=== PATIENT | female | born 1950 | race Caucasian/White ===

== ENCOUNTER 2019-12-10 07:42 | Day surgery (SDC) | payer BC, MEDICAID ==
[~2019-12-10] VITALS: Ht 167.6 cm; Wt 56.7 kg
[2019-12-10] VITALS (9 sets, daily range): BP systolic 115–156; BP diastolic 59–83
[2019-12-10] MEDS ORDERED: ASPI-611 PO (08:36)
[2019-12-10] MEDS ORDERED: DOCU-148 PO (08:37)
[2019-12-10] MEDS ORDERED: FLUO-167 PO (08:38)
[2019-12-10] MEDS ORDERED: FURO40TA4 PO (08:39)
[2019-12-10] MEDS ORDERED: MIDO10TA PO (08:40)
[2019-12-10] MEDS ORDERED: OMEP40CA13 PO (08:41)
[2019-12-10] MEDS ORDERED: SENN-162 PO (08:41)
[2019-12-10] MEDS ORDERED: LOVA20TA2 PO (08:42)
[2019-12-10] MEDS ORDERED: SPIR50TA5 PO (08:42)
[2019-12-10] MEDS ORDERED: TEMA7.5C PO (08:43)
[2019-12-10] MEDS: albumin 25% 100mL bottle x 1 IV PRN ×2 (09:27→10:17)
== END 2019-12-10 11:09 | disposition home or self-care (01) ==
LOC: SSTAY O 07:42
PROVIDERS: ATTEND Radiology Diagnostic Radiology
DX: R18.8 Other ascites (principal); I10 Essential (primary) hypertension
CPT/HCPCS: 49083; P9047

== ENCOUNTER 2020-05-29 14:02 | Inpatient (IN) | payer BC, MEDICAID ==
[~2020-05-29] VITALS: Ht 162.6 cm; Wt 107.9 kg
[~2020-05-29 14:02] MED LIST: ASPI-611 PO; DOCU-148 PO; FLUO-167 PO; FURO40TA4 PO; LOVA20TA2 PO; MIDO10TA PO; OMEP40CA13 PO; SENN-263 PO; SPIR50TA5 PO; TEMA7.5C PO
[2020-05-30] MEDS ORDERED: mag hydrox/Alum hydrox/simeth 30ml oral suspension PO PRN (09:25)
[2020-05-30] MEDS ORDERED: magnesium hydroxide 30ml (MOM) UD suspension PO PRN (09:25)
[2020-05-30] MEDS ORDERED: traZODone 50mg tablet PO PRN (09:25)
[2020-05-30] MEDS ORDERED: loperamide 2mg capsule PO PRN (09:25)
[2020-05-30] MEDS ORDERED: acetaminophen 325mg tablet PO PRN (09:25)
[2020-05-30] MEDS ORDERED: QUET25TA PO (09:57)
[2020-05-30] MEDS ORDERED: RIFA550T PO (09:57)
[2020-05-30] MEDS ORDERED: PANT-47 PO (09:57)
[2020-05-30] MEDS ORDERED: ARIP5TAB14 PO (09:57)
[2020-05-30] MEDS ORDERED: CEPH-572 PO (09:57)
[2020-05-30] MEDS ORDERED: DULO-31 PO (09:59)
[2020-05-30] MEDS ORDERED: LACT10SO PO (10:01)
[2020-05-30] MEDS ORDERED: LURA40TA3 PO (10:08)
[2020-05-30] MEDS ORDERED: duloxetine 30mg CAPSULE.DR PO SCH (10:32)
--- NOTE | 2020-05-30 10:51 | NUR ---
Admission note: Pt admitted to [place] for Behavioral health on 5150 at 0915 for DTS. Pt attempted suicide by overdosing on 60 Tramadol tablets. Pt has history of chronic pain, fibromyalgia, depression, PE, liver failure. Pt presents confused upon arrival. Pt unsteady on her feet. Using wheelchair to transport pt and bedside commode.
[2020-05-30 13:12] VITALS: BP 111/69
[2020-05-30] MEDS: pantoprazole 40mg Tablet.DR PO SCH (13:30)
[2020-05-30] MEDS: rifaximin 550mg tablet PO SCH ×2 (13:30→20:27)
[2020-05-30] MEDS: lactulose 20gm/30ml cup PO SCH ×2 (13:30→20:27)
[2020-05-30] MEDS: cephalexin 500mg capsule PO SCH ×2 (13:33→20:27)
[2020-05-30] MEDS: nystatin 15 GM powder TP SCH ×3 (13:33→20:37)
[2020-05-30] MEDS: aripiprazole 5mg tablet PO SCH (13:33)
--- NOTE | 2020-05-30 15:45 | NUR ---
Nursing Progress Note: Legal hold: Client on involuntary status for DTS Report received from Odell Mendiola RN with use of SBAR Why are they here: Pt admitted to [place] for [facility] health on 5150 at 0915 for DTS. Pt attempted suicide by overdosing on 60 Tramadol tablets. Pt has history of chronic pain, fibromyalgia, depression, PE, liver failure. Pt presents confused upon arrival. Pt unsteady on her feet. Using wheelchair to transport pt and bedside commode. Assessment What has happened this shift: After admission, pt spent most of the day in her bed. Pt did get up with assistance to lunch. Pt c/o generalized body aches from lying in bed and she does have h/o fibromyalgia dx..Pt confused and disorganized. Pt answers with unrelated topic at times to questions and was not oriented to place or time. She stated she was at [facility] and that it is 2006. Pt is very unsteady on her feet and though educated repeatedly, she kept trying to get up without asking for help. Staff would respond when her bed alarm would go off. Pt has flat to depressed affect and dramatic at times. Pt continues to endorse suicidal thoughts with a plan to overdose on pills. S/I, H/I: yes, S.I. with plan to overdose on pills A/VH: denies Sleep: napped on and off throughout the day. Pt states difficulty sleeping at noc ADL's: with assistance, wears pull-up Group attendance: n/a Were meds taken: yes Any med S/E: no Mental Status Exam Appearance:hospital scrubs Eye contact: poor Behavior: sedated, dramatic, cooperative Speech: clear Mood: anxious/depressed Affect: depressed, dramatic Thought process: disorganized at times Thought Content: confused Cognition: impaired Insight: poor Judgment: poor - pt gets up without asking for help Interventions PRN's used: Therapeutic interventions:1:1 assessment, maintained a safe and therapeutic environment, provided clear and simple instructions, monitored behavior and need for intervention, provided redirection/reassurance as needed, encouragement to perform personal hygiene, limit setting, positive reinforcement, Q 15 minute safety checks. Restraints/seclusion/emergency medication: none Justification of Continued Inpatient Treatment:
[2020-05-30] MEDS ORDERED: duloxetine 30mg CAPSULE.DR PO ONE (16:05)
[2020-05-30] MEDS ORDERED: QUEtiapine 25mg tablet PO PRN (16:30)
[2020-05-30] MEDS: LORazepam 1 MG tablet PO PRN (16:42)
[2020-05-30 20:32] VITALS: BP 123/74
[2020-05-30] MEDS ORDERED: QUEtiapine 25mg tablet PO SCH (21:00)
[2020-05-30] MEDS: acetaminophen 325mg tablet PO PRN (22:12)
[2020-05-31] MEDS: LORazepam 1 MG tablet PO PRN (00:16)
[2020-05-31] MEDS ORDERED: traMADol 50MG tablet PO ONE ×2 (00:30→22:40)
[2020-05-31] MEDS ORDERED: LORazepam 1 MG tablet PO ONE (02:45)
[2020-05-31] MEDS ORDERED: QUEtiapine 25mg tablet PO ONE (02:45)
[2020-05-31 02:58] VITALS: BP 140/72
--- NOTE | 2020-05-31 04:24 | NUR ---
Nursing Progress Note: Legal hold:5150 Client on involuntary status for DTS Report received from Odell Mendiola RN with use of SBAR Why are they here: Pt admitted to [place] for Behavioral health on 5150 at 0915 for DTS. Pt attempted suicide by overdosing on 60 Tramadol tablets. Pt has history of chronic pain, fibromyalgia, depression, PE, liver failure. Pt presents confused upon arrival. Pt unsteady on her feet. Using wheelchair to transport pt and bedside commode. Assessment What has happened this shift: Pt is confused, thinks she is in a house, and makes random statements about ducks, and people's names. She is unable to ambulate independently and must have a staff member at her bedside at all times, because she constantly tries to pull herself out of bed with her eyes closed to "get up", but once she is up does not know what to do. Pt reports pain in her left upper leg/ hip area and cries out multiple times. She occasionally contracts and shakes and states she is anxious. Pt given ativan 1mg and PRN Seroquel 25 mg. Pt continues to toss and turn and cry out. She states repeatedly "I want to kill myself I am in so much pain." Hospitalist called, tramadol 50mg PO ordered and given. Pt continues to toss and turn and try to get out of bed. Dr. Vázquez called, ordered Ativan 2mg, Seroquel 50 mg PO which was given after assessing her blood pressure (140/72). Pt still continues to toss and turn back and forth in bed and try to climb out. Staff reassures her and tries to educate her on fall risks, but she just mumbles and continues to try to climb out of the bed with her eyes closed. S/I, H/I: endorses SI A/VH: denies Sleep: hardly any ADL's: total assistance, wears pull-up Group attendance: n/a Were meds taken: yes Any med S/E: no Mental Status Exam Appearance: night gown Eye contact: poor, mostly keeps her eyes shut Behavior: yells outloud, tries to get out of bed constantly Speech: sometimes clear, sometimes mumbles Mood: anxious/depressed Affect: depressed Thought process: disorganized at times Thought Content: confused Cognition: impaired Insight: poor Judgment: poor - pt gets up without asking for help Interventions PRN's used:ativan 1mg, seroquel 25mg, tramadol 50mg, ativan 2mg, seroquel 50mg Therapeutic interventions:1:1 assessment, maintained a safe and therapeutic environment, provided clear and simple instructions, monitored behavior and need for intervention, provided redirection/reassurance as needed, encouragement to perform personal hygiene, limit setting, positive reinforcement, Q 15 minute safety checks. Restraints/seclusion/emergency medication: none Justification of Continued Inpatient Treatment: PT states she is suicidal because of how much pain she is in.
[2020-05-31 08:00] VITALS: BP 97/70
[2020-05-31] MEDS: duloxetine 30mg CAPSULE.DR PO SCH (08:00)
[2020-05-31] MEDS: aripiprazole 5mg tablet PO SCH (08:00)
[2020-05-31] MEDS: cephalexin 500mg capsule PO SCH ×2 (08:00→20:15)
[2020-05-31] MEDS: pantoprazole 40mg Tablet.DR PO SCH (08:00)
[2020-05-31] MEDS: rifaximin 550mg tablet PO SCH ×2 (08:00→20:17)
[2020-05-31] MEDS: lactulose 20gm/30ml cup PO SCH ×3 (08:00→20:15)
[2020-05-31] MEDS: nystatin 15 GM powder TP SCH ×3 (08:11→20:17)
[2020-05-31 09:31] LABS: HEMOGLOBIN A1C 4.7 % (4.5-6.2)
[2020-05-31 09:36] LABS: CHOLESTEROL 129 MG/DL (0-200); HDL CHOLESTEROL 32 MG/DL (35-60); LDL CHOLESTEROL 84 MG/DL (50-100); TRIGLYCERIDES 63 MG/DL (20-135)
[2020-05-31 13:45] VITALS: BP 123/82
[2020-05-31 17:52] LABS: BASOPHILS % (AUTO) 0.5 % (0-1); EOSINOPHILS # (AUTO) 0.3 X10'3 (0-0.9); EOSINOPHILS % (AUTO) 5.4 % (0-6); HEMATOCRIT 33.9 % (35.0-45.0); HEMOGLOBIN 11.5 g/dl (12.0-16.0); LYMPHOCYTES # (AUTO) 0.7 X10'3 (1.1-4.8); MEAN CORPUSCULAR HEMOGLOBIN 31.1 PG (27.0-31.0); MEAN CORPUSCULAR VOLUME 91.6 FL (78-98); MEAN PLATELET VOLUME 7.8 FL (7.4-10.4); MONOCYTES # (AUTO) 0.7 X10'3 (0-0.9); MONOCYTES % (AUTO) 12.8 % (2-12); NEUTROPHILS # (AUTO) 3.8 X10'3 (1.8-7.7); NEUTROPHILS % (AUTO) 68.3 % (42-75); PLATELET COUNT 156 X10'3 (140-440); RED CELL DISTRIBUTION WIDTH 14.5 % (11.5-14.5); WHITE BLOOD COUNT 5.5 X10'3 (4.5-11.0)
[2020-05-31 18:00] LABS: PARTIAL THROMBOPLASTIN TIME 29 SECONDS (22-32)
--- NOTE | 2020-05-31 18:06 | NUR ---
Nursing Progress Note: Legal hold:5150 Client on involuntary status for DTS Report received from Gerda SHARIF with use of SBAR Why are they here: Pt admitted to [place] for [facility] health on 5150 at 0915 for DTS. Pt attempted suicide by overdosing on 60 Tramadol tablets. Pt has history of chronic pain, fibromyalgia, depression, PE, liver failure. Pt presents confused upon arrival. Pt unsteady on her feet. Using wheelchair to transport pt and bedside commode. Assessment What has happened this shift: Pt remained somnolent for most of the shift. She only opened her eyes a couple of times. She was unable to take her meds due to decreased LOC. Pt refused breakfast and lunch and did not drink fluids all day. Pt was turned and repositioned by school patrol and RN. Pt did verbalize twice that she needed to pee and without opening her eyes was placed on the commode with the assist of 2 and voided small amount of urine, she was incontinent of urine in her pull-up brief X 1. Dr Vázquez and Dr Hong notified of pt's change of condition as well as her inability to take her PO medications today. Pt has significant ascites. VSS this am were: 97.9, 102, 16, 94% RA, 97/70. Rechecked VS around lunchtime: 97.8, 103, 94% RA, 123/82. Pt has cool extremities. Dr Hong ordered lab work: Ammonia level, CBC/diff, CMP, PT/INR, PTT, thyroid panel, UA/C&S if indicated. Ammonia level back at 68, endorsed UA to noc shift. Pt did appear a little more alert before dinner, opened her eyes and appeared to be focusing on staff. Pt is on a LOS. S/I, H/I: Unable to assess A/VH: Unable to assess Sleep: hardly any ADL's: Extensive assist of 2 for transfers, toileting/commode,and repositioning. Group attendance: No Were meds taken: No Any med S/E: may have been sedated from medications received during the night. Mental Status Exam Appearance: Pale elderly woman somnolent and snoring in bed. Eye contact: Kept eyes shut for majority of shift. Behavior: Decreased LOC Speech: Mumbled,minimal Mood: Unable to assess Affect: Unable to assess Thought process: Decreased LOC Thought Content: Unable to assess Cognition: Unable to assess due to ALOC Insight: Unable to assess Judgment: Unable to assess Interventions PRN's used: None Therapeutic interventions:1:1 assessment physical assessment, assist with turning, repositioning, toileting, and incontinent care. Notified MD and psychiatrist of pt's change of condition, ALOC. Restraints/seclusion/emergency medication: None Justification of Continued Inpatient Treatment: PT has end stage liver disease, she has an ALOC, she is s/p OD in a suicide attempt. Pt needs stabilization and possibly placement.
[2020-05-31 18:10] LABS: ALANINE AMINOTRANSFERASE 16 U/L (12-78); ALBUMIN 1.7 G/DL (3.4-5.0); ALBUMIN/GLOBULIN RATIO 0.4 (1.1-1.5); ALKALINE PHOSPHATASE 126 IU/L (46-116); ANION GAP 4 (8-16); ASPARTATE AMINO TRANSFERASE 48 U/L (10-37); BILIRUBIN,TOTAL 1.5 MG/DL (0.1-1.0); BLOOD UREA NITROGEN 19 MG/DL (7-18); CALCIUM 8.6 MG/DL (8.5-10.1); CHLORIDE 103 MMOL/L (99-107); CREATININE 0.95 MG/DL (0.40-0.90); GLUCOSE 112 MG/DL (70-104); SODIUM 137 MMOL/L (135-145); TOTAL CARBON DIOXIDE 30.3 MMOL/L (24-32); TOTAL PROTEIN 6.4 G/DL (6.4-8.2); eGFR 58 ML/MIN
[2020-05-31 20:37] VITALS: BP 125/80
[2020-05-31] MEDS ORDERED: LIDOcaine 5% patch TP ONE (22:40)
[2020-06-01 00:38] LABS: CLARITY,URINE CLEAR (Clear); COLOR,URINE YELLOW (Yellow); GLUCOSE, URINE NEGATIVE (Neg); KETONES,URINE TRACE mg/dl (Neg); LEUKOCYTE ESTERASE ,URINE NEGATIVE (Neg); NITRITES, URINE NEGATIVE (Neg); OCCULT BLOOD,URINE LARGE (Neg); PH,URINE 5.5 (4.8-8.0); PROTEIN,URINE NEGATIVE (Neg); UROBILINOGEN,URINE 0.2 E.U/dL (0.2-1.0)
[2020-06-01 00:39] LABS: UA COLLECTION TYPE STRAIGHT CATH
[2020-06-01 00:43] LABS: BACTERIA,URINE 1+ /HPF (Neg); SQUAMOUS EPITHELIAL CELL,UR MODERATE /LPF (FEW); WBC,URINE 0-4 /HPF (0-4)
--- NOTE | 2020-06-01 02:22 | NUR ---
Nursing Progress Note: Legal hold:5150 Client on involuntary status for DTS Report received from Abhijit Mendiola RN with use of SBAR Why are they here: Pt admitted to [place] for Behavioral health on 5150 at 0915 for DTS. Pt attempted suicide by overdosing on 60 Tramadol tablets. Pt has history of chronic pain, fibromyalgia, depression, PE, liver failure. Pt presents confused upon arrival. Pt unsteady on her feet. Using wheelchair to transport pt and bedside commode. Assessment What has happened this shift: Pt continues to be on a LOS for fall risk. She responds to her name being called, but generally keeps her eyes closed. PT remembers staff members from the night before. She still endorses SI related to unresolved and unbearable pain. Pt is a 3 person assist to bedside commode, she states she needs to urinate, but once she sits on the commode she can not. While she is standing up, property underwriter asses sacral area, and no redness or areas of concern observed. Pt is prompted to turn during the shift, which she complies. Pt is in and out of sleep for the first part of the evening, then wakes up crying out in pain from her left hip. consulted, tramadol 50mg po given along with lidocaine patch to left hip. UA was ordered on , pt encouraged to drink water, which she complied with very well. After two failed attempts to urinate on the bedside commode, a straight cath order was obtained. Pt was straight cathed, UA sent to lab. Bladder scan done on pt to see if any retention was occurring, but the bladder scanner kept detecting her ascites. Urine from straight cath was light paula, 100 ML total. Basia care done, area is red and irritated. Barrier cream applied. S/I, H/I: endorses SI A/VH: denies Sleep:see sleep assessment ADL's: total assistance Group attendance: n/a Were meds taken: yes Any med S/E: no Mental Status Exam Appearance: new pajama top given to pt Eye contact: poor, mostly keeps her eyes shut Behavior: sleeps on and off Speech: sometimes clear, sometimes mumbles Mood: anxious/depressed Affect: depressed, tired Thought process: disorganized at times Thought Content: confused Cognition: impaired Insight: poor Judgment: poor Interventions PRN's used:tramadol 50mg lidocaine patch Therapeutic interventions:1:1 assessment, maintained a safe and therapeutic environment, provided clear and simple instructions, monitored behavior and need for intervention, provided redirection/reassurance as needed, encouragement to perform personal hygiene, limit setting, positive reinforcement, Q 15 minute safety checks. Restraints/seclusion/emergency medication: none Justification of Continued Inpatient Treatment: PT states she is suicidal because of how much pain she is in.
[2020-06-01 07:52] VITALS: BP 96/60
[2020-06-01] MEDS: pantoprazole 40mg Tablet.DR PO SCH (08:18)
[2020-06-01] MEDS: aripiprazole 5mg tablet PO SCH (08:18)
[2020-06-01] MEDS: cephalexin 500mg capsule PO SCH ×2 (08:18→21:08)
[2020-06-01] MEDS: lactulose 20gm/30ml cup PO SCH ×3 (08:19→21:10)
[2020-06-01] MEDS: nystatin 15 GM powder TP SCH ×3 (08:19→21:35)
[2020-06-01] MEDS: rifaximin 550mg tablet PO SCH ×2 (08:19→21:09)
[2020-06-01] MEDS: duloxetine 30mg CAPSULE.DR PO SCH (08:19)
[2020-06-01] MEDS: acetaminophen 325mg tablet PO PRN ×2 (08:27→15:42)
[2020-06-01] MEDS: LORazepam 1 MG tablet PO PRN ×3 (08:36→21:08)
[2020-06-01] MEDS ORDERED: traMADol 50MG tablet PO ONE (16:20)
--- NOTE | 2020-06-01 17:21 | NUR ---
Nursing Progress Note: Legal hold:5150 Client on involuntary status for DTS Report received from Gianna Wagner RN with use of SBAR Why are they here: Pt admitted to [place] for Behavioral health on 5150 at 0915 for DTS. Pt attempted suicide by overdosing on 60 Tramadol tablets. Pt has history of chronic pain, fibromyalgia, depression, PE, liver failure. Pt presents confused upon arrival. Pt unsteady on her feet. Using wheelchair to transport pt and bedside commode. Assessment What has happened this shift: Pt was alert though confused today. When asked the date, pt stated that she didn't know. Asked her if she knew what year it was, she did reply, "." She answered correctly "May" for the month, she did not know the day. Asked pt if she knew where she was, she stated "hospital." When asked which hospital, pt was unable to answer. Asked pt what city we are in and she replied, "[place]." Asked pt about her living situation, she stated, "I live alone with my mom and dad." Pt took all of her morning meds without difficulty and ate 50 % of her breakfast, drank her juice and 2 cups of water. Pt tends to speak in short, broken sentences. Pt stated, "this banana,good food." Asked pt is she was feeling depressed, she replied, "better." Asked pt if she was having any SI, she replied, "not now." Pt c/o moderate general and left hip pain. Gave Tylenol 650 mg at 0827. Pt asked if she could have the other pill, "anxiety pill...to help with the pain." Pt was given Ativan 1 mg @ 0836 with good effect. Encouraged pt to get up out of bed and into a wheelchair for lunch. Pt did so with some encouragement, she ate lunch in the w/c in the dining room. Pt appeared uncomfortable in the wheelchair due to her large ascitic abdomen. Pt ate 25% of her lunch and was returned to bed. Pt is able to roll from side to side in bed with direction by grabbing onto the side rails. Pt was up to the commode several times and able to void, pt also had a medium BM. Pt was incontinent of urine X 2 in the bed. Pt wears a pull up brief. Pt drank at least 2 pitchers of water and 2 juices. Pt requested prn Ativan again later in the afternoon. Sitter reported that pt appeared uncomfortable and was restless trying to find a comfortable position in the bed. Pt asked where her recliner was. Medicated pt again with prn Ativan 1 mg at 1523 and prn Tylenol 650 mg at 1542. Charge nurse notified CHELI Villalobos of pt's severe general pain via phone/text message and requested he address pain management. Order obtained for Tramadol 100 mg X 1 given at 1644. S/I, H/I: Pt denies A/VH: Pt denies Sleep: Pt slept 9.5 hours last night per noc shift report, napped frequently throughout the day. ADL's: Extensive assist of 2 for transfers, toileting/commode,and repositioning min to mod assist with meals. Group attendance: No Were meds taken: Yes Any med S/E: None noted or reported. Mental Status Exam Appearance: Pale disheveled white haired elderly with grossly obese/ascitic abdomen and multiple bruises on upper extremities, frequently appears moderately distressed. Eye contact: Fair Behavior: Pleasant, cooperative, restless. Speech: Clear, audible, speaks mostly in one word answers or short broken sentences. Mood: "better" Affect: Blunted, distressed at times. Thought process: Linear Thought Content: Wants her glasses and her recliner, focused on pain and requests for anxiety medication. Cognition: A/O X 1, intermittent delirium Insight: Poor Judgment: Fair Interventions PRN's used: Ativan 1 mg at 0836 & 1542, Tylenol 650 mg at 0827 & 1523. Therapeutic interventions: 1:1 assessment, establishment of rapport, active listening, therapeutic conversation, provided simple, clear 1 to 2 step directions, encouraged pt to reposition in bed, encouraged nutrition and hydration, extensive assist with ADLs, 2 person assist with transfers, toileting, pain management, line of sight observation. Restraints/seclusion/emergency medication: None Justification of Continued Inpatient Treatment: Pt has end stage liver disease (MORFIN) with significant ascites, she is confused, she is in moderate to severe pain, she needs extensive assist of 2 for most ADLs she is s/p OD in a suicide attempt. Pt needs medical and mental health stabilization, she needs pain management and may need placement in a higher level of care due to medical issues.
[2020-06-01 19:00] VITALS: BP 95/60
[2020-06-01] MEDS ORDERED: lactose-reduced food (Ensure High Protein) 237ml bottle PO ONE (19:40)
[2020-06-02] MEDS: traMADol 50MG tablet PO PRN ×3 (00:19→14:50)
--- NOTE | 2020-06-02 03:20 | NUR ---
Nursing Progress Note: Legal hold:5150 Client on involuntary status for DTS Report received from Gabriela Mendiola RN with use of SBAR Why are they here: Pt admitted to [place] for Behavioral health on 5150 at 0915 for DTS. Pt attempted suicide by overdosing on 60 Tramadol tablets. Pt has history of chronic pain, fibromyalgia, depression, PE, liver failure. Pt presents confused upon arrival. Pt unsteady on her feet. Using wheelchair to transport pt and bedside commode. Assessment What has happened this shift: Pt continues to be on a LOS for fall risk. Pt is in extreme discomfort due to her distended abdomen. She states she usually gets a paracentesis approx every 2 weeks, and it has been longer than that. A padded reclining chair was brought up for her to try to ease her discomfort and allow her to sit up instead of lay in bed constantly. Pt sat in chair for 2 minutes then demanded to get back into bed. She tosses and turns all night long with no relief. Pt is given ativan 1mg PRN and tramadol 50 mg PRN. Pt feels urgency and gets up often to try to pee. Pt is a 2 person assist, she remains weak and can put forth only a little effort with ADLS. Pt is incontinent of urine x1, bedding changed. Pt uses the bedside commode as well. Pt needs assistance in drinking and eating. She keeps her eyes closed most of the time and only replies in short answers, she appears exhausted. When asked if she is still feeling suicidal she replies, "sometimes" but will not go into any further details. Pt is clear when asking for what she needs, but can be heard talking about "birdies" and names unknown to bid writer. Basia care done, nystatin powder applied, Barrier cream applied. S/I, H/I: endorses passive SI A/VH: denies Sleep:see sleep assessment ADL's: 2 person assist Group attendance: n/a Were meds taken: yes Any med S/E: no Mental Status Exam Appearance: in pajamas Eye contact: poor, mostly keeps her eyes shut Behavior: restless in bed Speech: sometimes clear, sometimes mumbles Mood: exhausted, depressed Affect: depressed Thought process: disorganized at times Thought Content: confused Cognition: impaired Insight: poor Judgment: poor Interventions PRN's used:tramadol 50mg, ativan 1mg , ativan 1 mg Therapeutic interventions:1:1 assessment, maintained a safe and therapeutic environment, provided clear and simple instructions, monitored behavior and need for intervention, provided redirection/reassurance as needed, encouragement to perform personal hygiene, limit setting, positive reinforcement, Q 15 minute safety checks. Restraints/seclusion/emergency medication: none Justification of Continued Inpatient Treatment: PT states she is suicidal because of how much pain she is in.
--- NOTE | 2020-06-02 05:37 | NUR ---
PT got up w/ 2 person assistance 15 times this shift to try to use the bathroom. Out of the 15 times pt was only able to actually go to the bathroom 4 times. Pt had 2 episodes of urinary incontinence requiring bedsheet changes.
[2020-06-02 08:00] VITALS: BP 125/84
[2020-06-02 08:21] LABS: BASOPHILS # (AUTO) 0.1 X10'3 (0-0.2); BASOPHILS % (AUTO) 1.1 % (0-1); EOSINOPHILS # (AUTO) 0.3 X10'3 (0-0.9); EOSINOPHILS % (AUTO) 5.2 % (0-6); HEMATOCRIT 34.5 % (35.0-45.0); HEMOGLOBIN 11.7 g/dl (12.0-16.0); LYMPHOCYTES # (AUTO) 1.2 X10'3 (1.1-4.8); LYMPHOCYTES % (AUTO) 18.1 % (21-51); MEAN CORPUSCULAR HEMOGLOBIN 31.4 PG (27.0-31.0); MEAN CORPUSCULAR VOLUME 92.3 FL (78-98); MEAN PLATELET VOLUME 7.4 FL (7.4-10.4); MONOCYTES # (AUTO) 0.9 X10'3 (0-0.9); MONOCYTES % (AUTO) 13.8 % (2-12); NEUTROPHILS # (AUTO) 4.2 X10'3 (1.8-7.7); NEUTROPHILS % (AUTO) 61.8 % (42-75); PLATELET COUNT 182 X10'3 (140-440); RED BLOOD COUNT 3.73 X10'6 (4.20-5.60); RED CELL DISTRIBUTION WIDTH 14.8 % (11.5-14.5); WHITE BLOOD COUNT 6.7 X10'3 (4.5-11.0)
[2020-06-02] MEDS: pantoprazole 40mg Tablet.DR PO SCH (08:28)
[2020-06-02] MEDS: cephalexin 500mg capsule PO SCH ×2 (08:28→20:33)
[2020-06-02] MEDS: duloxetine 30mg CAPSULE.DR PO SCH (08:28)
[2020-06-02] MEDS: rifaximin 550mg tablet PO SCH ×2 (08:28→20:33)
[2020-06-02] MEDS: aripiprazole 5mg tablet PO SCH (08:28)
[2020-06-02] MEDS: nystatin 15 GM powder TP SCH ×3 (08:29→20:51)
[2020-06-02] MEDS: lactulose 20gm/30ml cup PO SCH ×3 (08:29→20:31)
--- NOTE | 2020-06-02 08:31 | NUR ---
Late Note for contact made on 06/01: CM SS attempted to engage pt in assessment & TP activities however, pt was asleep and unable to rouse. Floridalmater reports that pt sleeps most of the day. As a result, pt was not able to sign DM or TP #9, at this time SS will engage w/identified next of kin-pt's dtr. Elma Doaln LCSW Addendum: 06/02/20 at 0835 by Elma Dolan SS Amended: Links added.
[2020-06-02 08:34] LABS: ALBUMIN 1.8 G/DL (3.4-5.0); ANION GAP 3 (8-16); BILIRUBIN,TOTAL 1.7 MG/DL (0.1-1.0); BLOOD UREA NITROGEN 16 MG/DL (7-18); BUN/CREATININE RATIO 14.8 (6.6-38.0); CALCIUM 8.3 MG/DL (8.5-10.1); CHLORIDE 100 MMOL/L (99-107); CREATININE 1.08 MG/DL (0.40-0.90); GLUCOSE 89 MG/DL (70-104); POTASSIUM 3.6 MMOL/L (3.5-5.1); SODIUM 134 MMOL/L (135-145); TOTAL CARBON DIOXIDE 30.9 MMOL/L (24-32); TOTAL PROTEIN 6.5 G/DL (6.4-8.2); eGFR 50 ML/MIN
[2020-06-02 08:35] LABS: ALANINE AMINOTRANSFERASE 16 U/L (12-78); ALBUMIN/GLOBULIN RATIO 0.4 (1.1-1.5); ALKALINE PHOSPHATASE 111 IU/L (46-116); ASPARTATE AMINO TRANSFERASE 41 U/L (10-37)
--- NOTE | 2020-06-02 08:35 | NUR ---
Late Note: CM On 06/01, SS had t/c with [facility], provided referral on pt's behalf, per t/c with Brayden Alfonso-[facility] ANDRESSA, [facility] is aware of pt and have had referrals for her in the past but nothing current, Brayden took SS referral and suggests that SS get in touch w/[facility] as pt has been granted 51 hrs of IHSS services/mo. JANIE FitzpatrickW Addendum: 06/02/20 at 0839 by Elma Dolan Amended: Links added.
--- NOTE | 2020-06-02 08:39 | NUR ---
CM:Linkages Presenting Issues: Pt's an elderly woman with poor memory, requiring assistance to transfer, has unsteady gait, attempted to end her life by od on her pain meds, pt lives alone. Safety in the home is a barrier to d/c at this time. Interventions: SS had t/c with [facility], left requesting rt t/c as pt requires additional IHSS hours and night time care provider to continue to live in her home. Plan: will engage pt's dtr in dcp activities to mitigate safety risks prior to d/c. Elma Dolan LCSW Addendum: 06/02/20 at 0852 by Elma Dolan Amended: Links added.
[2020-06-02] MEDS: lactose-reduced food (Ensure High Protein) 237ml bottle PO SCH ×3 (08:44→18:02)
--- NOTE | 2020-06-02 09:26 | NUR ---
Assessment Presenting Issues: Pt's 5150 expires this AM, pt needs 5250/Vol determination. Interventions: SS met w/pt @ bedside, pt was in bed, naked w/eyes closed but became alert when her name was called. SS re-introduced self, pt kept asking for "Chrissy/Angel", SS conducted a brief MSE: A/O- x1 pt only oriented to self, not able to tell me where she's at, time of day, or why she's here Mood-anxious Affect-sleepy As pt lacks capacity to determine basic information re Who, what, when, where, & why of her current situation, SS can only conclude that she is unable to provide informed consent for a Voluntary stay at this time, recommends a 5250 Hold as initial risks & triggers of this PHF has not been mitigated yet. Plan: Engage family in safety planning to support d/c early next week. Provide linkages/referrals for Palliative Care via [facility]. Elma Peunte LCSW Addendum: 06/02/20 at 0936 by Elma HOOD Amended: Links added.
[2020-06-02] MEDS: LORazepam 1 MG tablet PO PRN (12:20)
--- NOTE | 2020-06-02 14:51 | NUR ---
DCP Presenting Issues: Pt's currently on 5250 as she continues to endorse sxs associated w/depression including suicidal ideation & thoughts w/plan to OD on meds. Interventions: SS had t/c with pt's daughter and engaged her in dcp activities. Per t/c daughter expressed concerns that pt can no longer live independently and would like pt to be placed in a SNF, dtr's trying to obtain a Durable Power of [employer]. SS discussed high liklihood of pt d/c home with referrals to HH & IHSS. Dtr request that we try to place pt in a SNF but understands that pt may d/c home. Plan: SS will provide referral for -Palliative Care services, explore SNF placement options. Elma Dolan LCSW Addendum: 06/02/20 at 1502 by Elma Dolan Amended: Links added.
--- NOTE | 2020-06-02 16:47 | NUR ---
Nursing Progress Note: Legal hold:5250 Client on involuntary status for DTS Report received from Gianna Wagner RN with use of SBAR Why are they here: Pt admitted to [place] for [facility] health on 5150 at 0915 for DTS. Pt attempted suicide by overdosing on 60 Tramadol tablets. Pt has history of chronic pain, fibromyalgia, depression, PE, liver failure. Pt presents confused upon arrival. Pt unsteady on her feet. Using wheelchair to transport pt and bedside commode. Assessment What has happened this shift: Pt was alert/confused today. She remained awake all day, appeared to be in moderate distress, was restless and had difficulty finding a comfortable position. Pt continues to be disoriented to time, place, and situation, she refers frequently to her mother. When this nurse was helping the PCT to place Chux on the bed pt stated, "these are from my mom." Pt shifts position, sits up, moans, and repeatedly attempts to get out of bed, she continues on LOS. Pt c/o severe general pain, her ascitic abdomen prevents her from getting comfortable in a w/c, a cardiac chair, or bed. Medicated pt with prn Tramadol 50 mg at 0829 & 1450. Medicated with prn Ativan 1 mg at 1220. Pt requests to get up onto commode or every 15 to 30 minutes, however, when transferred to the commode usually is unable to go. Pt voided 330 ml into commode and was incontinent of urine X 3. Pt was incontinent of stool X1, a large BM which PCT reports continues to consist of large, hardish balls. Pt drank 800 ml consisting of water, juice, she ate her cereal this morning and drank half of her lunchtime Ensure. Started pt on daily weights. Obtained a bariatric walker today from physical therapy. Pt's ability to transfer much improved today with the walker. Pt is able to follow one to two step directions. She can stand up using the walker and pivot to the commode, she is able to side step (taking several small steps) towards the head of the bed before getting back into bed. PT requests that we return the walker to them once pt is discharged. Contacted the hospitalist this morning regarding pt's discomfort and large ascitic abdomen, notified them that she has a paracentesis done approx every 2 weeks and it had probably been that long since done. Hospitalist ordered an ultrasound to be done it showed moderate generalized ascites with the largest pocket in the RUQ and the deepest pocket at least 12 cm in depth. Hospitalist ordered a paracentesis. Called [facility] at 1513 to notify them of the order, was told that they are backed up and have 2 cases ahead of her. They stated they would have the doctor down there review the ultrasound to determine if it needed to be done today. Called [facility] back, they reported that the majority of pt's fluid is around her liver which can be a problem to drain. They would contact Dr Daley to see what she wanted them to do, indicated that they may have to come in tomorrow or re-evaluate Friday. This RN stressed the level of pt's discomfort. [facility] came up at 1715 to perform the paracentesis, it is currently in progress at bedside, pt gave her consent and lifted her shirt up for the procedure, pt is cooperating with the procedure. S/I, H/I: Pt denies A/VH: Pt denies Sleep: Pt slept only 0.75 hours last night per noc shift report, she did not sleep today. ADL's: Extensive assist of 2 for transfers, toileting/commode,and repositioning min to mod assist with meals. Group attendance: No Were meds taken: Yes Any med S/E: None noted or reported. Mental Status Exam Appearance: Pale disheveled white haired elderly with grossly obese/ascitic abdomen and multiple bruises on upper extremities, frequently appears moderately distressed. Eye contact: Fair Behavior: Restless, unable to get comfortable, frequently attempts to climb out of bed. Speech: Soft, audible, speaks mostly in one word answers or short broken sentences. Mood: Anxious Affect: Anxious, mod distress Thought process: Linear Thought Content: Focuses on need to get up, frequent thoughts of her mother Cognition: A/O X 1, intermittent delirium Insight: Poor Judgment: Fair Interventions PRN's used: Tramadol 50 mg @ 0829 & 1450, Ativan 1 mg @ 1120. Therapeutic interventions: 1:1 assessment, provided simple clear 1 to 2 step directions, encouraged pt to reposition in bed, encouraged nutrition and hydration, encouraged pt autonomy with bed mobility an transfers, obtained FWW, provided extensive assist with ADLs, 2 person assist with transfers, toileting, pain management, advocated for patient, facilitated paracentesis, line of sight observation. Restraints/seclusion/emergency medication: None Justification of Continued Inpatient Treatment: Pt has end stage liver disease (MORFIN) with significant ascites, she is confused, she is in moderate to severe pain, she needs extensive assist of 2 for most ADLs she is s/p OD in a suicide attempt. Pt needs medical and mental health stabilization, she needs pain management and may need placement in a higher level of care due to medical issues.
[2020-06-02 18:18] VITALS: BP 118/74
[2020-06-02 18:21] VITALS: BP 121/81
[2020-06-02 20:00] VITALS: BP 113/71
[2020-06-02] MEDS: QUEtiapine 25mg tablet PO SCH (20:33)
--- NOTE | 2020-06-03 04:16 | NUR ---
Nursing Progress Note: Legal hold: 5250 Client on involuntary status for DTS Report received from Gabriela SHARIF with use of SBAR Why are they here: Pt admitted to [place] for [facility] health on 5150 at 0915 for DTS. Pt attempted suicide by overdosing on 60 Tramadol tablets. Pt has history of chronic pain, fibromyalgia, depression, PE, liver failure. Pt presents confused upon arrival. Pt unsteady on her feet. Using wheelchair to transport pt and bedside commode. Assessment What has happened this shift: Patient finishing paracentesis procedure at the beginning of shift. Reported that patient was cooperative during procedure and 3300mL drained. Patient observed sleeping shortly after. During med pass patient appeared restless and continuously attempting to stand and sitting back down. Patient follows clear, short, simple instructions with staff assistance. She was readjusted in bed, cooperated with medications and quickly went back to sleep. She appears to be sleeping without difficulty. S/I, H/I: Denies A/VH: Denies Sleep: Refer to sleep assessment ADL's: Extensive 2 person assist for transfers, repositioning and toileting. Group attendance: No groups this shift Were meds taken: Yes, without incident Any med S/E: None noted or reported. Mental Status Exam Appearance: Disheveled, wearing hospital gown. Eye contact: Fair Behavior: Sleeping, fatigued, cooperative Speech: Soft, audible, speaks mostly in one word answers or short broken sentences. Mood: Fatigued Affect: Congruent Thought process: Linear Thought Content: Focuses on need to get up Cognition: A/O X 1, intermittent delirium Insight: Poor Judgment: Fair Interventions PRN's used: None Therapeutic interventions: 1:1 assessment, provided simple clear 1 to 2 step directions, encouraged pt to reposition in bed, encouraged nutrition and hydration, encouraged pt autonomy with bed mobility an transfers, obtained FWW, provided extensive assist with ADLs, 2 person assist with transfers, toileting, pain management, advocated for patient, facilitated paracentesis, line of sight observation. Restraints/seclusion/emergency medication: None Justification of Continued Inpatient Treatment: Pt has end stage liver disease (MORFIN) with significant ascites, she is confused, she is in moderate to severe pain, she needs extensive assist of 2 for most ADLs she is s/p OD in a suicide attempt. Pt needs medical and mental health stabilization, she needs pain management and may need placement in a higher level of care due to medical issues.
[2020-06-03 08:00] VITALS: BP 118/81
[2020-06-03] MEDS: aripiprazole 5mg tablet PO SCH (08:33)
[2020-06-03] MEDS: duloxetine 30mg CAPSULE.DR PO SCH (08:34)
[2020-06-03] MEDS: cephalexin 500mg capsule PO SCH ×2 (08:34→20:33)
[2020-06-03] MEDS: pantoprazole 40mg Tablet.DR PO SCH (08:34)
[2020-06-03] MEDS: rifaximin 550mg tablet PO SCH ×2 (08:34→20:33)
[2020-06-03] MEDS: lactulose 20gm/30ml cup PO SCH ×3 (08:44→20:33)
[2020-06-03] MEDS: lactose-reduced food (Ensure High Protein) 237ml bottle PO SCH ×3 (08:47→18:19)
[2020-06-03] MEDS: nystatin 15 GM powder TP SCH ×3 (08:47→20:34)
[2020-06-03] MEDS: traMADol 50MG tablet PO PRN (15:57)
--- NOTE | 2020-06-03 17:33 | NUR ---
Nursing Progress Note: Legal hold: Client on involuntary status for DTS Report received from RN with use of SBAR Why are they here: Pt admitted to [place] for [facility] health on 5150 at 0915 for DTS. Pt attempted suicide by overdosing on 60 Tramadol tablets. Pt has history of chronic pain, fibromyalgia, depression, PE, liver failure. Pt presents confused upon arrival. Pt unsteady on her feet. Using wheelchair to transport pt and bedside commode. Assessment What has happened this shift: Received Pt in bed sleeping w/o distress at beginning of shift. Pt cooperative with vitals and returned to sleep immediately. Pt aroused multiple times to take AM meds and was cooperative and pleasant. She was incontinent of urine before breakfast. Pt took one bite of breakfast and drank some milk. She ate approximately 50% of lonch and 50% of ensure with lunch. She was up to the comode and had a BM and urinated. Pt stayed in room and slept/rested for the entire shift. She c/o pain and received Tramadol PRN with modest effect. Pt appears more comfortable as evidenced by her ability to rest and sleep. S/I, H/I: yes, S.I. 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 Restraints/seclusion/emergency medication: None Justification of Continued Inpatient Treatment: Pt has end stage liver disease (MORFIN) with significant ascites, she is confused, she is in moderate to severe pain, she needs assist for most ADLs she is s/p OD in a suicide attempt. Pt needs medical and mental health stabilization, she needs pain management and may need placement in a higher level of care due to medical issues.
[2020-06-03] MEDS: LORazepam 1 MG tablet PO PRN (19:30)
[2020-06-03] MEDS: acetaminophen 325mg tablet PO PRN (19:30)
[2020-06-03 20:10] VITALS: BP 90/51
[2020-06-03] MEDS: QUEtiapine 25mg tablet PO SCH (20:33)
--- NOTE | 2020-06-04 05:04 | NUR ---
Nursing Progress Note: Legal hold: 5250 Client on involuntary status for DTS Report received from Gabriela SHARIF with use of SBAR Why are they here: Pt admitted to [place] for [facility] health on 5150 at 0915 for DTS. Pt attempted suicide by overdosing on 60 Tramadol tablets. Pt has history of chronic pain, fibromyalgia, depression, PE, liver failure. Pt presents confused upon arrival. Pt unsteady on her feet. Using wheelchair to transport pt and bedside commode. Assessment What has happened this shift: Patient resting with eyes closed at the beginning of shift. Pleasant and cooperative with care, compliant with medication. PRN Tylenol and Ativan provided for increased anxiousness and back pain with some relief reported. Patient remained in bed throughout the shift and continues to respond minimally. Patient continues to need extensive staff assist for repositioning, standing and ambulating to [facility]. Patient is on strict I&O for ascites. ABD remains swollen but patient reports less abdominal pain. Patient provided saltine crackers and broth for HS snack per request prior to going back to sleep. Does not appear to be having difficulty sleeping. Remains on LOS. S/I, H/I: None reported A/VH: Denies Sleep: Refer to sleep assessment ADL's: Extensive 2 person assist for transfers, repositioning and toileting. Group attendance: No groups this shift Were meds taken: Yes, without incident Any med S/E: None noted or reported. Mental Status Exam Appearance: Disheveled, wearing hospital gown. Eye contact: Fair Behavior: Sleeping, fatigued, cooperative Speech: Soft, audible, speaks mostly in one word answers or short broken sentences. Mood: Fatigued Affect: Congruent Thought process: Linear Thought Content: Getting needs met Cognition: A/O X 1, intermittent delirium Insight: Poor Judgment: Fair Interventions PRN's used: Ativan and Tylenol Therapeutic interventions: 1:1 assessment, provided simple clear 1 to 2 step directions, encouraged pt to reposition in bed, encouraged nutrition and hydration, encouraged pt autonomy with bed mobility an transfers, obtained FWW, provided extensive assist with ADLs, 2 person assist with transfers, toileting, pain management, advocated for patient, facilitated paracentesis, line of sight observation. Restraints/seclusion/emergency medication: None Justification of Continued Inpatient Treatment: Pt has end stage liver disease (MORFIN) with significant ascites, she is confused, she is in moderate to severe pain, she needs extensive assist of 2 for most ADLs she is s/p OD in a suicide attempt. Pt needs medical and mental health stabilization, she needs pain management and may need placement in a higher level of care due to medical issues.
[2020-06-04 07:44] VITALS: BP 93/63
[2020-06-04] MEDS: lactose-reduced food (Ensure High Protein) 237ml bottle PO SCH (08:48)
[2020-06-04] MEDS: aripiprazole 5mg tablet PO SCH (09:08)
[2020-06-04] MEDS: rifaximin 550mg tablet PO SCH ×2 (09:09→20:14)
[2020-06-04] MEDS: duloxetine 30mg CAPSULE.DR PO SCH (09:09)
[2020-06-04] MEDS: cephalexin 500mg capsule PO SCH ×2 (09:09→20:14)
[2020-06-04] MEDS: nystatin 15 GM powder TP SCH ×3 (09:09→21:00)
[2020-06-04] MEDS: pantoprazole 40mg Tablet.DR PO SCH (09:09)
[2020-06-04] MEDS: lactulose 20gm/30ml cup PO SCH ×3 (09:11→20:15)
--- NOTE | 2020-06-04 09:55 | NUR ---
Initial: Pt admit w/ intentional opiate OD, SI, major depressive disorder. Hx predementia AOx1 at this time, MORFIN, end stage liver disease, cirrhosis, CHF, and HTN per MD. DX CKD as well. S/p 3300cc paracentesis 06/02 receiving lactulose for for initial ammonia elevated given hx per MD; ammonia now WNL. PO remains poor past 5 days not meeting needs fluctuating 25-49% when does eat heart healthy meals but also refusing. Ensure high protein added w/ 0-25% PO fluctuating as well. RD d/w RN regarding ensure enlive TIDWM if MD agreeable since more appropriate ONS given poor PO; higher kcals and protein to help meet needs. Having routine BM's on lactulose. Will continue to monitor for ONS acceptance, PO hx, and additional protein/kcal needs. Rec: 1. continue heart healthy diet; if poor PO persists consider liberalization to regular; encourage PO 2. ensure enlive TIDWM for additional protein/kcals 3. bowel care as needed; on lactulose 4. weekly wts Addendum: 06/04/20 at [address] Amended: Links added.
[2020-06-04] MEDS: traMADol 50MG tablet PO PRN ×2 (11:25→19:32)
[2020-06-04] MEDS: lactose-reduced food (Ensure Enlive) - 237ml bottle PO SCH ×2 (12:58→18:15)
[2020-06-04] MEDS: LORazepam 1 MG tablet PO PRN (14:03)
[2020-06-04 17:45] VITALS: BP 97/62
--- NOTE | 2020-06-04 18:17 | NUR ---
Nursing Progress Note: Legal hold: 5250 Expires 06/16 @ 0915 Client on involuntary status for DTS Report received from MERCY Olvera with use of SBAR Why are they here: Pt admitted to [place] for Behavioral health on 5150 at 0915 for DTS. Pt attempted suicide by overdosing on 60 Tramadol tablets. Pt has history of chronic pain, fibromyalgia, depression, PE, liver failure. Pt presents confused upon arrival. Pt unsteady on her feet. Using wheelchair to transport pt and bedside commode. Assessment What has happened this shift: Received patient in bed sleeping at shift change, no distress noted. Patient continues to sleep, but roused for meals and medications. Pt c/o of back pain Ultram administered with minor effect, pt. woke again c/o of back pain administered Ativan - pt. appears to be restless and uncomfortable. Ativan was effective. Pt. ate 50-75% of breakfast; 75% Ensure for breakfast and 100% for lunch. Patient is a LOS and being turned Q2hr. Pt. denies SI and asks "when do I get to go home." "I don't want to hurt myself anymore." Pt. asked several times when she could go home, she also requested to be set up in bed for snack. Pt ate some fresh fruit. Patient was able to tell this loan underwriter what year it was, the current president and where she was. One large incontinent urine episode, soaked sheets and clothing. It was later brought to this nurses attention that patient was confused, trouble remembering where she was. Dr. Juares notified. Doctor states she still has some intermittent delirium. Vitals obtained. BP 97/62; HR; 88; RR 20; T 98.8; O2 94%; Pain 0/10. Input 1550 Output: 500 + incontinence episode. S/I, H/I: Denies both. A/VH: Denies both. Sleep: 8.25 hrs. per Sleep Assessment. Pt. sleeps throughout the day ADL's: Needs moderated assistance. Group attendance: No group on Friday Were meds taken: Yes, without incident Any med S/E: None observed or reported. Mental Status Exam Appearance: Pale disheveled white haired elderly with grossly obese/ascitic abdomen and multiple bruises on upper extremities, frequently appears moderately distressed. Eye contact: Poor Behavior: Fatigued, cooperative, pt. restless, uncomfortable at times. Speech: Soft, normal rate/rhythm, minimal. Mood: Fatigued, depressed. Affect: Sleepy, blunted. Thought process: Linear, sometimes confused. Thought Content: Confused at times Cognition: Impaired Insight: Poor Judgment: Poor Interventions PRN's used: Ultram, Ativan Therapeutic interventions:1:1 assessment, maintained a safe and therapeutic environment, provided clear and simple instructions, monitored behavior and need for intervention, provided reassurance as needed, assistance with ADL's, encouragement to perform personal hygiene, limit setting, positive reinforcement, Q 15 minute safety checks. Restraints/seclusion/emergency medication: None Justification of Continued Inpatient Treatment: Pt has end stage liver disease (MORFIN) with significant ascites, she is confused, she is in moderate to severe pain, she needs assist for most ADLs she is s/p OD in a suicide attempt. Pt needs medical and mental health stabilization, she needs pain management and may need placement in a higher level of care due to medical issues.
[2020-06-04 20:00] VITALS: BP 121/65
[2020-06-04] MEDS: QUEtiapine 25mg tablet PO SCH (20:15)
--- NOTE | 2020-06-04 23:32 | NUR ---
Nursing Progress Note: Legal hold: 5250 Client on involuntary status for DTS Report received from KOLE Ochoa with use of SBAR Why are they here: Pt admitted to [place] for [facility] health on 5150 at 0915 for DTS. Pt attempted suicide by overdosing on 60 Tramadol tablets. Pt has history of chronic pain, fibromyalgia, depression, PE, liver failure. Pt presents confused upon arrival. Pt unsteady on her feet. Using wheelchair to transport pt and bedside commode. Assessment What has happened this shift: The patient was found lying in bed at shift change. She was lying there with her eyes closed, but looked at me when spoken to. When asked a question, she replies very softly with minimal responses. The patient still endorses SI, but does not state a plan. She spent the entire evening in bed, and uses her sitter for help to bathroom. Her abdomen remains enlarged due to Ascites, and she has trouble laying flat. She made no complaints tonight, and seems to have no trouble going back to sleep. Her sitter remains at bedside to keep LOS, and assist with transfers and repositioning. She remained in bed all shift. S/I, H/I: Positive for SI A/VH: Denies Sleep: Refer to sleep assessment ADL's: Extensive 2 person assist for transfers, repositioning and toileting. Group attendance: No groups this shift Were meds taken: Yes. Any med S/E: None reported or observed. Mental Status Exam Appearance: Disheveled, elderly woman lying in bed wearing unit green scrubs. Eye contact: Fair Behavior: Sleeping, fatigued, cooperative Speech: Soft, barely audible Mood: Fatigued Affect: Congruent Thought process: Linear Thought Content: Getting needs met Cognition: A/O X 1, intermittent delirium Insight: Poor Judgment: Fair Interventions PRN's used: Therapeutic interventions: 1:1 assessment, provided simple clear 1 to 2 step directions, encouraged pt to reposition in bed, encouraged nutrition and hydration, encouraged pt autonomy with bed mobility an transfers, obtained FWW, provided extensive assist with ADLs, 2 person assist with transfers, toileting, pain management, advocated for patient, facilitated paracentesis, line of sight observation. Restraints/seclusion/emergency medication: None Justification of Continued Inpatient Treatment: Pt has end stage liver disease (MORFIN) with significant ascites, she is confused, she is in moderate to severe pain, she needs extensive assist of 2 for most ADLs she is s/p OD in a suicide attempt. Pt needs medical and mental health stabilization, she needs pain management and may need placement in a higher level of care due to medical issues.
[2020-06-05] MEDS: acetaminophen 325mg tablet PO PRN ×2 (01:06→20:10)
[2020-06-05] MEDS: traMADol 50MG tablet PO PRN ×3 (02:13→22:06)
[2020-06-05] MEDS: LORazepam 1 MG tablet PO PRN (02:14)
[2020-06-05 08:00] VITALS: BP 110/67
[2020-06-05] MEDS: duloxetine 30mg CAPSULE.DR PO SCH (08:56)
[2020-06-05] MEDS: pantoprazole 40mg Tablet.DR PO SCH (08:56)
[2020-06-05] MEDS: cephalexin 500mg capsule PO SCH ×2 (08:56→20:09)
[2020-06-05] MEDS: nystatin 15 GM powder TP SCH ×3 (08:56→20:15)
[2020-06-05] MEDS: lactose-reduced food (Ensure Enlive) - 237ml bottle PO SCH ×3 (08:57→18:00)
[2020-06-05] MEDS: aripiprazole 5mg tablet PO SCH (08:57)
[2020-06-05] MEDS: lactulose 20gm/30ml cup PO SCH ×3 (08:57→20:09)
[2020-06-05] MEDS: rifaximin 550mg tablet PO SCH ×2 (08:57→20:09)
--- NOTE | 2020-06-05 17:33 | NUR ---
Nursing Progress Note: Legal hold: 5250 Expires 06/16 @ 0915 Client on involuntary status for DTS Report received from KOLE Bain with use of SBAR Why are they here: Pt admitted to [place] for Behavioral health on 5150 at 0915 for DTS. Pt attempted suicide by overdosing on 60 Tramadol tablets. Pt has history of chronic pain, fibromyalgia, depression, PE, liver failure. Pt presents confused upon arrival. Pt unsteady on her feet. Using wheelchair to transport pt and bedside commode. Assessment What has happened this shift: Received patient sleeping in her bed at shift change, no distress noted. Pt. is aroused for breakfast and eats in bed sitting up. Pt. is cooperative with medications and appears less uncomfortable. Pt. smiled and made a sour face when it came time to take her Lactulose. Pt. is more engaging during 1:1. Pt. is up to commode for voiding and bowel movement. No incontinent episodes this shift. Pt. even got a little irritable when this keno writer / runner kept talking to her "I am tired, I want to sleep now." Pt. up for AM snack engaging in conversation with sitlorena and this keno writer / runner. When suggested she go for a walk later and sit up in her chair pt. is agreeable "maybe we can go for a walk." No c/o of pain during assessment or requests for pain medication. Pt. denies SI, "I don't want to be gone" pt. hesitates then says "I just can't explain it." Pt. is up sitting in chair for lunch. Pt. returns to bed and sleeps, rouses to name. Pt. is turned q2hrs. Approximately 1600 pt. reports generalized pain 6/10; Ultram 50mg administered with effect. Pt. resting comfortably, respirations even and unlabored. Input 1,292 mL Output: 850 mL - Charted in interventions. S/I, H/I: Denies both. A/VH: Denies both. Sleep: 7.25 hrs. per Sleep Assessment. Pt. sleeps throughout the day; awake more then usual. ADL's: Needs moderate assistance. More proactive in transferring self and eating meals. Group attendance: Unable to attend group at this time. Were meds taken: Yes, without incident Any med S/E: None observed or reported. Mental Status Exam Appearance: Pale disheveled white haired elderly with grossly obese/ascitic abdomen and multiple bruises on upper extremities. Eye contact: Poor Behavior: Cooperative, less fatigued, more bright and engaging. Up in chair for lunch. Speech: Soft, normal rate/rhythm, minimal. Mood: Less fatigued, euthymic, calm Affect: Congruent with mood. Thought process: Linear, less confused. Thought Content: Circumstantial Cognition: A&O x3 Insight: Poor Judgment: Poor Interventions PRN's used: Ultram Therapeutic interventions:1:1 assessment, maintained a safe and therapeutic environment, provided clear and simple instructions, monitored behavior and need for intervention, provided reassurance as needed, assistance with ADL's, encouragement to perform personal hygiene, limit setting, positive reinforcement, Q 15 minute safety checks. Restraints/seclusion/emergency medication: None Justification of Continued Inpatient Treatment: Pt has end stage liver disease (MORFIN) with significant ascites, she is confused, she is in moderate to severe pain, she needs assist for most ADLs she is s/p OD in a suicide attempt. Pt needs medical and mental health stabilization, she needs pain management and may need placement in a higher level of care due to medical issues.
[2020-06-05] MEDS: QUEtiapine 25mg tablet PO SCH (20:09)
[2020-06-05 20:12] VITALS: BP 109/73
--- NOTE | 2020-06-05 23:35 | NUR ---
Nursing Progress Note: Legal hold: 5250 Client on involuntary status for DTS Report received from KOLE Fletcher with use of SBAR Why are they here: Pt admitted to [place] for [facility] health on 5150 at 0915 for DTS. Pt attempted suicide by overdosing on 60 Tramadol tablets. Pt has history of chronic pain, fibromyalgia, depression, PE, liver failure. Pt presents confused upon arrival. Pt unsteady on her feet. Using wheelchair to transport pt and bedside commode. Assessment What has happened this shift: The patient was seen at bedside for 1:1 assessment. She had her eyes closed, but wakes easily. She appears tired and weak, needing assist to move about in her bed. She is in pain and requests Tramadol, but it is couple hours too soon. She agreed to Tylenol, but gets little relief. She is told when she can have it, but makes multiple requests before the time. The patient was in bed at time of assessment, and she remained there all night. She was not talkative, but seemed less confused tonight. She is denying SI, and states, "I'm not ready to yet." She was compliant with medications, and her Tramadol was administered at 2206, as soon as it could be given. She was soon back to sleep. S/I, H/I: Denies A/VH: Denies Sleep: Refer to sleep assessment ADL's: Extensive 2 person assist for transfers, repositioning and toileting. Group attendance: No groups this shift Were meds taken: Yes. Any med S/E: None reported or observed. Mental Status Exam Appearance: Disheveled, elderly woman lying in bed wearing unit green scrubs. Eye contact: Fair Behavior: Sleeping, fatigued, cooperative, confused Speech: Soft, barely audible Mood: Fatigued Affect: Congruent Thought process: Linear Thought Content: Getting needs met Cognition: A/O X 1, intermittent delirium Insight: Poor Judgment: Fair Interventions PRN's used: Tylenol 650mg, Tramadol 50mg Therapeutic interventions: 1:1 assessment, provided simple clear 1 to 2 step directions, encouraged pt to reposition in bed, encouraged nutrition and hydration, encouraged pt autonomy with bed mobility an transfers, obtained FWW, provided extensive assist with ADLs, 2 person assist with transfers, toileting, pain management, advocated for patient, facilitated paracentesis, line of sight observation. Restraints/seclusion/emergency medication: None Justification of Continued Inpatient Treatment: Pt has end stage liver disease (MORFIN) with significant ascites, she is confused, she is in moderate to severe pain, she needs extensive assist of 2 for most ADLs she is s/p OD in a suicide attempt. Pt needs medical and mental health stabilization, she needs pain management and may need placement in a higher level of care due to medical issues.
[2020-06-06 08:00] VITALS: BP 105/74
[2020-06-06] MEDS: rifaximin 550mg tablet PO SCH ×2 (08:02→19:41)
[2020-06-06] MEDS: duloxetine 30mg CAPSULE.DR PO SCH (08:02)
[2020-06-06] MEDS: lactulose 20gm/30ml cup PO SCH ×3 (08:02→20:03)
[2020-06-06] MEDS: aripiprazole 5mg tablet PO SCH (08:02)
[2020-06-06] MEDS: nystatin 15 GM powder TP SCH ×3 (08:04→20:03)
[2020-06-06] MEDS: cephalexin 500mg capsule PO SCH (08:04)
[2020-06-06] MEDS: lactose-reduced food (Ensure Enlive) - 237ml bottle PO SCH ×3 (08:04→18:09)
[2020-06-06] MEDS: pantoprazole 40mg Tablet.DR PO SCH (08:04)
[2020-06-06] MEDS: traMADol 50MG tablet PO PRN ×2 (08:04→16:47)
--- NOTE | 2020-06-06 18:08 | NUR ---
Nursing Progress Note: Legal hold: 5250 Expires 06/16 @ 0915 Client on involuntary status for DTS Report received from KOLE Lorenz with use of SBAR Why are they here: Pt admitted to [place] for Behavioral health on 5150 at 0915 for DTS. Pt attempted suicide by overdosing on 60 Tramadol tablets. Pt has history of chronic pain, fibromyalgia, depression, PE, liver failure. Pt presents confused upon arrival. Pt unsteady on her feet. Using wheelchair to transport pt and bedside commode. Assessment What has happened this shift: Received patient resting in bed at shift change, respirations even and unlabored. Pt rouses to name for 1:1 assessment and medication administration. Pt. is bright and made a couple of jokes. Pt. ate her breakfast sitting up in bed and up in her chair for the rest of her meals. Pt. c/o of pain mid morning. Pt. was repositioned and administered Tramadol with effect. Pt. denies SI in the morning then endorses SI in the afternoon. When asked if she wanted to because of her pain pt. says "No, not because of pain, because no one cares." Pt. received a bed bath; redness under pannus appears to be be getting better. Getting pt. out of bed and repositioning aids in pain management. Patient still endorses intermittent depression. Input: 1429 mL Output: 400mL 1 loose incontinent issue. S/I, H/I: Denies both. A/VH: Denies both. Sleep: 7.25 hrs. per Sleep Assessment. Pt. sleeps throughout the day; awake more then ususal. ADL's: Needs moderate assistance. More proactive in transfering self and eating meals. Group attendance: Unable to attend group at this time. Were meds taken: Yes, without incident Any med S/E: None observed or reported. Mental Status Exam Appearance: Pale disheveled white haired elderly with grossly obese/ascitic abdomen and multiple bruises on upper extremities. Eye contact: Poor Behavior: Cooperative, less fatigued, more bright and engaging. Up in chair for lunch. Speech: Soft, normal rate/rhythm, minimal. Mood: Less fatigued, euthymic, calm Affect: Congruent with mood. Thought process: Linear, less confused. Thought Content: Circumstantial Cognition: A&O x3 Insight: Poor Judgment: Poor Interventions PRN's used: Ultram, Tylenol. Therapeutic interventions:1:1 assessment, maintained a safe and therapeutic environment, provided clear and simple instructions, monitored behavior and need for intervention, provided reassurance as needed, assistance with ADL's, encouragement to perform personal hygiene, limit setting, positive reinforcement, Q 15 minute safety checks. Restraints/seclusion/emergency medication: None Justification of Continued Inpatient Treatment: Pt has end stage liver disease (MORFIN) with significant ascites, she is confused, she is in moderate to severe pain, she needs assist for most ADLs she is s/p OD in a suicide attempt. Pt needs medical and mental health stabilization, she needs pain management and may need placement in a higher level of care due to medical issues.
[2020-06-06 20:00] VITALS: BP 107/70
[2020-06-06] MEDS: QUEtiapine 25mg tablet PO SCH (20:03)
--- NOTE | 2020-06-06 22:16 | NUR ---
Nursing Progress Note: Legal hold: 5250 Expires 06/16 @ 0915 Client on involuntary status for DTS Report received from KOLE Lacey with use of SBAR Why are they here: Pt admitted to [place] for [facility] health on 5150 at 0915 for DTS. Pt attempted suicide by overdosing on 60 Tramadol tablets. Pt has history of chronic pain, fibromyalgia, depression, PE, liver failure. Pt presents confused upon arrival. Pt unsteady on her feet. Using wheelchair to transport pt and bedside commode. Assessment What has happened this shift: Pt was asleep at change of shift, but rousible. Pt continues to complain of back pain but did not request any pain medication. Pt was friendly and cooperative during 1:1 and denied si/hi, a/vh. Pt appeared to be sleepy and would fall back to sleep immediately after having a conversation. Pt requested an orange and hailey crackers for snack and then went to bed. S/I, H/I: Denies both. A/VH: Denies both. Sleep: see sleep assessment ADL's: Needs moderate assistance. More proactive in transfering self and eating meals. Group attendance: n/a Were meds taken: Yes, without incident Any med S/E: None observed or reported. Mental Status Exam Appearance: Pale, fatigued looking, swollen abdomen. Eye contact: Poor Behavior: cooperative, sleepy Speech: Soft, normal rate/rhythm, minimal. Mood: Less fatigued, calm Affect: Congruent with mood. Thought process: Linear, less confused. Thought Content: Circumstantial Cognition: A&O x3 Insight: Poor Judgment: Poor Interventions PRN's used: n/a Therapeutic interventions:1:1 assessment, maintained a safe and therapeutic environment, provided clear and simple instructions, monitored behavior and need for intervention, provided reassurance as needed, assistance with ADL's, encouragement to perform personal hygiene, limit setting, positive reinforcement, Q 15 minute safety checks. Restraints/seclusion/emergency medication: None Justification of Continued Inpatient Treatment: Pt has end stage liver disease (MORFIN) with significant ascites, she is confused, she is in moderate to severe pain, she needs assist for most ADLs she is s/p OD in a suicide attempt. Pt needs medical and mental health stabilization, she needs pain management and may need placement in a higher level of care due to medical issues.
[2020-06-07 07:49] VITALS: BP 108/77
[2020-06-07] MEDS: pantoprazole 40mg Tablet.DR PO SCH (07:49)
[2020-06-07] MEDS: aripiprazole 5mg tablet PO SCH (07:49)
[2020-06-07] MEDS: rifaximin 550mg tablet PO SCH ×2 (07:49→20:38)
[2020-06-07] MEDS: lactulose 20gm/30ml cup PO SCH ×3 (07:49→20:38)
[2020-06-07] MEDS: nystatin 15 GM powder TP SCH ×3 (07:49→20:38)
[2020-06-07] MEDS: duloxetine 30mg CAPSULE.DR PO SCH (07:49)
[2020-06-07] MEDS: lactose-reduced food (Ensure Enlive) - 237ml bottle PO SCH ×3 (08:00→17:30)
--- NOTE | 2020-06-07 15:07 | NUR ---
Nursing Progress Note: Pérez Legal hold: 5250 Expires 06/16 @ 0915 Client on involuntary status for DTS Report received from Gerda ACOSTA Why are they here: Pt admitted to [place] for Behavioral health on 515 at 0915 for DTS. Pt attempted suicide by overdosing on 60 Tramadol tablets. Pt has history of chronic pain, fibromyalgia, depression, PE, liver failure. Pt presents confused upon arrival. Pt unsteady on her feet. Using wheelchair to transport pt. and bedside commode. Assessment What has happened this shift: Pt was asleep at change of shift but woke easily for medications and assessment. She was compliant with all aspects of her care and is currently on a LOS for risk for fall. Client has a bedside commode in place and will ask for assistance as needed. No somatic complaints as of this writing. Client had a visit from Hospitalist at 1230 hours. No new orders received but caution was issued to watch for rectal bleeding or blood from rectal area. Client received teaching regarding locating and reporting any blood in feces. Client has rested in her bed so far this shift and has not ambulated as of yet. Appetite is minimal. Client stated that she is not sleeping well and would like something to assist with sleep if possible. Lunch was consumed at 100 percent and client stated she felt better but was still tired. She remained in her room with LOS present and has had no issues with behavior or compliance. S/I, H/I: Denies both. A/VH: Denies both. Sleep: 7 ADL's: Needs moderate assistance. Group attendance: Were meds taken: Yes Any med S/E: None observed or reported. Mental Status Exam Appearance: Pale, fatigued Eye contact: Poor Behavior: cooperative, sleepy Speech: Soft, normal rate/rhythm, minimal. Mood: Less fatigued, calm Affect: Congruent with mood. Thought process: Linear, less confused. Thought Content: Circumstantial Cognition: A&O x3 Insight: Poor Judgment: Poor Interventions PRN's used: Therapeutic interventions:1:1 assessment, maintained a safe and therapeutic environment, provided clear and simple instructions, monitored behavior and need for intervention, provided reassurance as needed, assistance with ADL's, encouragement to perform personal hygiene, limit setting, positive reinforcement, Q 15 minute safety checks. Restraints/seclusion/emergency medication: None Justification of Continued Inpatient Treatment: Pt has end stage liver disease (MORFIN) with significant ascites, she is confused, she is in moderate to severe pain, she needs assist for most ADLs she is s/p OD in a suicide attempt. Pt needs medical and mental health stabilization, she needs pain management and may need placement in a higher level of care due to medical issues.
[2020-06-07] MEDS: LORazepam 1 MG tablet PO PRN (19:24)
[2020-06-07 19:30] VITALS: BP 142/82
[2020-06-07] MEDS: traMADol 50MG tablet PO PRN (20:37)
[2020-06-07] MEDS: QUEtiapine 25mg tablet PO SCH (20:38)
--- NOTE | 2020-06-07 22:03 | NUR ---
Nursing Progress Note: Legal hold:5250 Client on an involuntary hold for being a danger to herself Report received from Abhijit SHARIF with use of SBAR Why are they here: Pt admitted to [place] for Behavioral health on 5150 at 0915 for DTS. Pt attempted suicide by overdosing on 60 Tramadol tablets. Pt has history of chronic pain, fibromyalgia, depression, PE, liver failure. Pt presents confused upon arrival. Pt unsteady on her feet. Using wheelchair to transport pt. and bedside commode. Assessment What has happened this shift: The patient spent the evening resting on her bed except being up to use the bathroom. She has a one to one staff member. She appeared clean. She was cooperative with the evening assessment. Her replies to the assessment questions were monotone and slow. Her affect was blunted. She stated that she has been sleeping poorly for the past 3 nights. She reports poor concentration and focus. She reports her appetite has been very poor. When asked to describe her mood she stated "Its not very good" She does deny that she is suicidal and that she does want to live. She was oriented to month and year. She complained of high anxiety. She denies that she is experiencing auditory or visual hallucinations and she did not appear to be responding to internal stimuli during the evening assessment. She reports last shower was two days ago. ADL's: requires assistance Group attendance: no groups this shift Were meds taken: yes Any med S/E none noted Mental Status Exam Appearance: Appears stated age with a very large abdomen Eye contact: poor Behavior: withdrawn, quiet, cooperative Insight: impaired Judgment: impaired Interventions PRN's used: ativan Restraints/seclusion/emergency medication: none Justification of Continued Inpatient Treatment: the patient reports that she continues to feel very depressed and is having difficulty sleeping at night and requires PRN medications
[2020-06-07] MEDS: QUEtiapine 25mg tablet PO PRN (22:15)
[2020-06-08] MEDS: rifaximin 550mg tablet PO SCH ×2 (07:58→20:08)
[2020-06-08] MEDS: aripiprazole 5mg tablet PO SCH (07:58)
[2020-06-08] MEDS: lactulose 20gm/30ml cup PO SCH ×3 (07:59→20:07)
[2020-06-08] MEDS: duloxetine 30mg CAPSULE.DR PO SCH (07:59)
[2020-06-08] MEDS: pantoprazole 40mg Tablet.DR PO SCH (07:59)
[2020-06-08 08:00] VITALS: BP 131/80
[2020-06-08] MEDS: nystatin 15 GM powder TP SCH ×3 (08:00→20:08)
[2020-06-08] MEDS: lactose-reduced food (Ensure Enlive) - 237ml bottle PO SCH ×3 (08:13→17:55)
[2020-06-08] MEDS: traMADol 50MG tablet PO PRN ×2 (12:15→20:08)
--- NOTE | 2020-06-08 12:29 | NUR ---
Reassessment: Patient per MD note with CKD, probable cirrhosis, encephalopathy, elevated ammonia on 05/31 receiving rifaxmin and lactulose. Last ammonia taken was WNL on 06/02. Still receiving lactulose TID. Receiving ensure enlive TID, consuming average of 50-74%. Eating meals well, average 75-100% PO intake. Having daily liquid stools, likely r/t lactulose. Noted that patient's sodium was low on 06/02 and CMP and ammonia labs were completed. Recommended to staff to d/w the patient's MD regarding reinstating the labs to check ammonia and electrolytes as she is still receiving lactulose TID. tor for ONS acceptance, PO hx, and additional protein/kcal needs. Rec: 1. continue heart healthy diet 2. ensure enlive TIDWM 3. bowel care as needed; on lactulose 4. weekly wts Addendum: 06/08/20 at [address] Deann Sánchez RD Amended: Links added. Addendum: 06/08/20 at [address] Deann Sánchez RD Reassessment: Patient per MD note with CKD, probable cirrhosis, encephalopathy, elevated ammonia on 05/31 receiving rifaxmin and lactulose. Last ammonia taken was WNL on 06/02. Still receiving lactulose TID. Receiving ensure enlive TID, consuming average of 50-74%. Eating meals well, average 75-100% PO intake. Having daily liquid stools, likely r/t lactulose. Noted that patient's sodium was low on 06/02 and CMP and ammonia labs were completed. Recommended to staff to d/w the patient's MD regarding reinstating the labs to check ammonia and electrolytes as she is still receiving lactulose TID. Rec: 1. continue heart healthy diet 2. ensure enlive TIDWM 3. bowel care as needed; on lactulose 4. weekly wts
--- NOTE | 2020-06-08 14:35 | NUR ---
NURSING PROGRESS NOTE Legal hold: 5250 Expires 06/16 @ 0915 Client on involuntary status for DTS Report received from Gerda ACOSTA Why are they here: Pt admitted to [place] for Behavioral health on 5149 at 0915 for DTS. Pt attempted suicide by overdosing on 60 Tramadol tablets. Pt has history of chronic pain, fibromyalgia, depression, PE, liver failure. Pt presents confused upon arrival. Pt unsteady on her feet. Using wheelchair to transport pt. and bedside commode. Assessment What has happened this shift: The patient was very sleepy and lethargic throughout day complaining of neck pain. She is able to ask and get up with help to the commode. Multiple voids and a BM today. She is eating fairly well and taking in fluids. Cooperative and pleasant. Scored 17/30 on MME today. depressed mood, denies current suicidal thoughts. C/O pain and discomfort, receiving Tramadol and repositioning for comfort. No s/s of psychosis at this time. States she would like to go home but "not now, I feel too sick." Remains on LOS for fall risk. CMP and Ammonia level ordered. S/I, H/I: Denies A/VH: Denies Sleep: Slept several hours ADL's: Needs moderate assistance. Group attendance: No Were meds taken: Yes Any med S/E: None observed or reported. Mental Status Exam Appearance: fatigued Eye contact: fair Behavior: cooperative, sleepy Speech: Soft, minimal. Mood: Depressed Affect: Congruent with mood. Thought process: Linear Thought Content: Circumstantial, pain and illness Cognition: Alert but fatigued Insight: Poor Judgment: Poor Interventions PRN's used: None Therapeutic interventions:1:1 assessment, maintained a safe and therapeutic environment, provided clear and simple instructions, monitored behavior and need for intervention, provided reassurance as needed, assistance with ADL's, encouragement to perform personal hygiene, limit setting, positive reinforcement, Q 15 minute safety checks. Restraints/seclusion/emergency medication: None Justification of Continued Inpatient Treatment: Pt has end stage liver disease (MORFIN) with significant ascites, she is confused, she is in moderate to severe pain, she needs assist for most ADLs she is s/p OD in a suicide attempt. Pt needs medical and mental health stabilization, she needs pain management and may need placement in a higher level of care due to medical issues.
[2020-06-08 18:16] LABS: ALANINE AMINOTRANSFERASE 18 U/L (12-78); ALBUMIN 1.7 G/DL (3.4-5.0); ALBUMIN/GLOBULIN RATIO 0.3 (1.1-1.5); ALKALINE PHOSPHATASE 163 IU/L (46-116); ANION GAP 1 (8-16); ASPARTATE AMINO TRANSFERASE 43 U/L (10-37); BILIRUBIN,TOTAL 0.9 MG/DL (0.1-1.0); BLOOD UREA NITROGEN 18 MG/DL (7-18); BUN/CREATININE RATIO 15.1 (6.6-38.0); CALCIUM 8.4 MG/DL (8.5-10.1); CHLORIDE 101 MMOL/L (99-107); CREATININE 1.19 MG/DL (0.40-0.90); GLUCOSE 101 MG/DL (70-104); POTASSIUM 4.8 MMOL/L (3.5-5.1); SODIUM 135 MMOL/L (135-145); TOTAL PROTEIN 6.6 G/DL (6.4-8.2); eGFR 45 ML/MIN
[2020-06-08 19:00] VITALS: BP 106/64
[2020-06-08] MEDS: QUEtiapine 25mg tablet PO SCH (20:14)
[2020-06-08] MEDS: LORazepam 1 MG tablet PO PRN (21:30)
[2020-06-08] MEDS: acetaminophen 325mg tablet PO PRN (21:31)
[2020-06-08] MEDS ORDERED: diazepam 5mg tablet PO ONE (23:05)
--- NOTE | 2020-06-08 23:07 | NUR ---
CHELI Klein contacted by telephone. Patients left scapula pain remains a "9." Per Sirena, TO Diazepam 5mg PO now, MR X 1 prn in one hour. Patients Seroquel will be repeated also. Patients scapula pain is reproducible with palpation still. CHELI Pack was also advised of patients increasing ascites, she will consult with MD on this subject tomorrow.
[2020-06-08] MEDS: QUEtiapine 25mg tablet PO PRN (23:29)
--- NOTE | 2020-06-09 01:25 | NUR ---
Patient is sleeping quietly now. Some abdominal muscle use
--- NOTE | 2020-06-09 01:43 | NUR ---
NURSING PROGRESS NOTE Legal hold: 5250 Expires 06/16 @ 0915 Client on involuntary status for DTS Report received from KOLE Bain with use of SBAR. Why are they here: Pt admitted to [place] for [facility] health on 5150 at 0915 for DTS. Pt attempted suicide by overdosing on 60 Tramadol tablets. Pt has history of chronic pain, fibromyalgia, depression, PE, liver failure. Pt presents confused upon arrival. Pt unsteady on her feet. Using wheelchair to transport pt. and bedside commode. Assessment What has happened this shift: This patient is in bed in a mid fowlers position. Patient is line of sight with a sitter at bedside. Patient speaks softly. Patient denies any pain around 1845 hours. This patient consumed some chicken broth and half of her insure. The patient denies feeling hungry. The patient is alert, she does complain of exhaustion. Patient denies SOB. Patients abdomen is quite distended. Acute ascites is evident. Patient is absent of peripheral edema. Patients affect is flat. When asked abut suicidal ideation the patient denies it, the patient does elaborate that her chronic pain and lack of quality of life has caused her to be suicidal recently. Patient exhibits mild confusion at times. Patient developed left scapular pain that is reproducible with palpation around medication pass time. Patient was given her Tramadol, Tylenol, and APAP without improvement. Patient is compliant with all medications. This production underwriter contacted Sirena Hernandez by giulia. Orders received for Diazepam 5mg for muscular pain, MR X1 PRN in a hour. The second dose was not needed at the time of this writing. The PA was also advised about this patients large amount of abdominal ascites. CHELI Pack stated she will address this with a MD in the daytime. With discomfort resolved with Rx med's the patient falls asleep. While sleeping abdominal muscle use is noted for respiration. Patient remains W/D with fair color. No accessary muscle use is noted. Patients Albumen is 1.7, C02 is 33, Creatinine is 1.19. Labs sill be passed in report. S/I, H/I: Denies. A/VH: Denies. Sleep: Problems sleeping secondary to back pain. ADL's: Needs moderate assistance, up with assist to bedside commode. Group attendance: None on days. Were meds taken: Yes, medication compliant. Any med S/E: None observed or reported. Mental Status Exam Appearance: Fatigued. Eye contact: Good. Behavior: Cooperative. Speech: Soft, minimal. Mood: Depressed, feeling fatigued. Affect: Congruent with mood. Thought process: Linear. Thought Content: Circumstantial, pain and illness. Cognition: Alert but fatigued. Insight: Poor Judgment: Poor Interventions PRN's used: Diazepam, APAP. Therapeutic interventions:1:1 assessment, maintained a safe and therapeutic environment, provided clear and simple instructions, monitored behavior and need for intervention, provided reassurance as needed, assistance with ADL's, encouragement to perform personal hygiene, limit setting, positive reinforcement, Q 15 minute safety checks. Restraints/seclusion/emergency medication: None Justification of Continued Inpatient Treatment: Pt has end stage liver disease (MORFIN) with significant ascites, she is confused, she is in moderate to severe pain, she needs assist for most ADLs she is s/p OD in a suicide attempt. Pt needs medical and mental health stabilization, she needs pain management and may need placement in a higher level of care due to medical issues. Addendum: 06/09/20 at 0239 by Trey Grant RN PRN Tylenol was given for pain.
[2020-06-09 08:00] VITALS: BP 102/64
[2020-06-09] MEDS: lactulose 20gm/30ml cup PO SCH ×3 (08:10→20:18)
[2020-06-09] MEDS: aripiprazole 5mg tablet PO SCH (08:11)
[2020-06-09] MEDS: rifaximin 550mg tablet PO SCH ×2 (08:11→20:17)
[2020-06-09] MEDS: duloxetine 30mg CAPSULE.DR PO SCH (08:11)
[2020-06-09] MEDS: nystatin 15 GM powder TP SCH ×3 (08:12→20:17)
[2020-06-09] MEDS: lactose-reduced food (Ensure Enlive) - 237ml bottle PO SCH ×3 (08:12→18:01)
[2020-06-09] MEDS: pantoprazole 40mg Tablet.DR PO SCH (08:12)
[2020-06-09] MEDS: traMADol 50MG tablet PO PRN ×3 (08:12→19:18)
[2020-06-09] MEDS: acetaminophen 325mg tablet PO PRN ×2 (13:05→23:48)
--- NOTE | 2020-06-09 14:05 | NUR ---
NURSING PROGRESS NOTE Legal hold: 5250 Expires 06/16 @ 0915 Client on involuntary status for DTS Report received from DAVE Heaton Why are they here: Pt admitted to [place] for Behavioral health on 5149 at 0915 for DTS. Pt attempted suicide by overdosing on 60 Tramadol tablets. Pt has history of chronic pain, fibromyalgia, depression, PE, liver failure. Pt presents confused upon arrival. Pt unsteady on her feet. Using wheelchair to transport pt. and bedside commode. Assessment What has happened this shift: Beginning of shift still on LOS. Eating well and taking fluids. C/O pain in neck and back. Tramadol given with Tylenol and falls asleep. Very depressed mood with flat affect. States she is very weak when transferring to commode. Skin intact. Given bed bath and linen change. Denies suicidal thoughts but hopeless about future due to End Stage Liver disease and pain. Plan is to discharge on Friday. Taken off LOS at mid day. Doing well pressing call light when needing help. S/I, H/I: Denies A/VH: Denies Sleep: Slept several hours ADL's: Needs maximum assistance. Group attendance: No Were meds taken: Yes Any med S/E: None observed or reported. Mental Status Exam Appearance: fatigued, pale, expressionless Eye contact: poor Behavior: cooperative, sleepy Speech: Soft, minimal. Mood: Depressed Affect: flat Thought process: Linear Thought Content: Circumstantial, pain and illness Cognition: Arousable but fatigued Insight: Poor Judgment: Poor Interventions PRN's used: Ultram Therapeutic interventions:1:1 assessment, maintained a safe and therapeutic environment, provided clear and simple instructions, monitored behavior and need for intervention, provided reassurance as needed, assistance with ADL's, encouragement to perform personal hygiene, limit setting, positive reinforcement, Q 15 minute safety checks. Restraints/seclusion/emergency medication: None Justification of Continued Inpatient Treatment: Pt has end stage liver disease (MORFIN) with significant ascites, she is confused, she is in moderate to severe pain, she needs assist for most ADLs she is s/p OD in a suicide attempt. Pt needs medical and mental health stabilization, she needs pain management and may need placement in a higher level of care due to medical issues.
--- NOTE | 2020-06-09 16:24 | NUR ---
DCP Presenting Issues: Pt's MH is stable, pt's experience functional impairment associated w/declining health status due to age and physical pain. Per consultation w/Attending physician, pt will d/c on Friday, and request SS support to mitigate of the risks of re-admission. Interventions: SS had t/c with [facility] & faxed referral, informed APS that pt lives alone and requires in home support to be safe in the home. SS had t/c with [facility], per t/c pt was denied services due to multiple OD issues. [facility], a referral was sent there. SS had t/c w/pt's dtr, she will come to nut picker her mother on Friday and agreed to provide some support for pt until IHSS is in place. SS discussed the Declaration of Capacity & what to do with it, pt's dtr agreed to petition for probate conservatorship of pt. It is likely that pt will access the ER again as pt requires 09/06 support in the home. Plan: Pt to d/c home on Friday. Elma Dolan LCSW Addendum: 06/09/20 at 1659 by Elma Dolan Amended: Links added.
--- NOTE | 2020-06-09 17:54 | NUR ---
CM Presenting Issues: SS received t/c from [facility], pt was dclined due to multiple OD episodes, [facility] had provided services for pt in the past and had difficulties as pt does not have a inspector dials caregiver to mitigate risks associated with self harm or falls. Interventions: SS faxed referral to [facility]: will fax referal to [facility] on Friday. Elma Dolan LCSW Addendum: 06/09/20 at 1756 by Elma Dolan Amended: Links added.
[2020-06-09 19:00] VITALS: BP 108/71
[2020-06-09] MEDS: QUEtiapine 25mg tablet PO SCH (20:17)
[2020-06-09] MEDS: QUEtiapine 25mg tablet PO PRN (23:16)
[2020-06-10] MEDS ORDERED: diazepam 5mg tablet PO ONE
--- NOTE | 2020-06-10 01:59 | NUR ---
NURSING PROGRESS NOTE: Legal hold: 5250 Expires 06/16 @ 0915 Client on involuntary status for DTS Report received from KOLE Bain with use of SBAR. Why they are here: Pt admitted to [place] for Behavioral health on 5150 at 0915 for DTS. Pt attempted suicide by overdosing on 60 Tramadol tablets. Pt has history of chronic pain, fibromyalgia, depression, PE, liver failure. Pt presents confused upon arrival. Pt unsteady on her feet. Using wheelchair to transport pt. and bedside commode. Assessment What has happened this shift: This patient is in bed in a mid fowlers position. She is alert and answers questions appropriately. Patient has a sitter at bedside. Patient speaks softly and when asked how she is doing today she states, Good, but Im feeling tired. Patient complains of pain in her neck and back around 1900, Ultram given. She consumed 100% of her Ensure. The patient asked for snacks a couple of times. Crackers and apple sauce provided. Patient denies SOB. Patients abdomen is quite distended. Acute ascites is evident. Patient is absent of peripheral edema. Patients affect is flat. When asked about suicidal ideation the patient denies it. Patient is compliant with all medications. Patient is seen sleeping comfortably. No accessory muscle use is noted. Patient complained of pain and not being able to sleep around midnight. Tylenol given and order for Valium was obtained. Valium given to patient. Patient was able to sleep after. S/I, H/I: Denies. A/VH: Denies. Sleep: Problems sleeping Seroquel and valium given to help ADL's: Needs moderate assistance, up with assist to bedside commode. Group attendance: None on days. Were meds taken: Yes, medication compliant. Any med S/E: None observed or reported. Mental Status Exam Appearance: Fatigued. Eye contact: Good. Behavior: Cooperative. Speech: Soft, minimal. Mood: Depressed, feeling fatigued. Affect: Congruent with mood. Thought process: Linear. Thought Content: Circumstantial, pain and illness. Cognition: Alert but fatigued. Insight: Poor Judgment: Poor Interventions PRN's used: Ultram, Seroquel, Tylenol, valium. Therapeutic interventions:1:1 assessment, maintained a safe and therapeutic environment, provided clear and simple instructions, monitored behavior and need for intervention, provided reassurance as needed, assistance with ADL's, encouragement to perform personal hygiene, limit setting, positive reinforcement, Q 15 minute safety checks. Restraints/seclusion/emergency medication: None Justification of Continued Inpatient Treatment: Pt has end stage liver disease (MORFIN) with significant ascites, she is confused, she is in moderate to severe pain, she needs assist for most ADLs she is s/p OD in a suicide attempt. Pt needs medical and mental health stabilization, she needs pain management and may need placement in a higher level of care due to medical issues.
[2020-06-10] MEDS: aripiprazole 5mg tablet PO SCH (08:02)
[2020-06-10] MEDS: rifaximin 550mg tablet PO SCH ×2 (08:02→20:09)
[2020-06-10] MEDS: pantoprazole 40mg Tablet.DR PO SCH (08:02)
[2020-06-10] MEDS: lactulose 20gm/30ml cup PO SCH ×3 (08:02→20:10)
[2020-06-10] MEDS: duloxetine 30mg CAPSULE.DR PO SCH (08:03)
[2020-06-10] MEDS: traMADol 50MG tablet PO PRN ×3 (08:03→20:13)
[2020-06-10] MEDS: acetaminophen 325mg tablet PO PRN ×2 (08:04→13:10)
[2020-06-10] MEDS: nystatin 15 GM powder TP SCH ×3 (08:04→20:19)
[2020-06-10] MEDS: lactose-reduced food (Ensure Enlive) - 237ml bottle PO SCH ×3 (08:04→17:34)
[2020-06-10 08:34] VITALS: BP 128/70
--- NOTE | 2020-06-10 13:45 | NUR ---
NURSING PROGRESS NOTE Legal hold: 5250 Expires 06/16 @ 0915 Client on involuntary status for DTS Report received from DAVE Heaton Why are they here: Pt admitted to [place] for [facility] health on 515 at 0915 for DTS. Pt attempted suicide by overdosing on 60 Tramadol tablets. Pt has history of chronic pain, fibromyalgia, depression, PE, liver failure. Pt presents confused upon arrival. Pt unsteady on her feet. Using wheelchair to transport pt. and bedside commode. Assessment What has happened this shift: Back on LOS for fall risk. Sitter at bedside. C/O pain in neck and back. Feels weak and needing assistance to feed herself. Two person assist to commode. States she is feeling sad and hopeless but not having suicidal thoughts. Cooperative, eating well and med compliant. Flat affect, sleepy. Linear thoughts and slow very soft speaking. Wants to go home. Gain of 4 pounds. Positions changes, skin intact. Plan to discharge Friday to home with daughter's help. S/I, H/I: Denies A/VH: Denies Sleep: Slept several hours ADL's: Needs maximum assistance. Group attendance: No Were meds taken: Yes Any med S/E: None observed or reported. Mental Status Exam Appearance: fatigued, disheveled Eye contact: fair Behavior: cooperative, sleepy Speech: Soft, minimal. Mood: Depressed Affect: flat Thought process: Linear Thought Content: Circumstantial, wanting to go home Cognition: Arousable Insight: poor Judgment: fair Interventions PRN's used: Ultram, Tylenol Therapeutic interventions:1:1 assessment, maintained a safe and therapeutic environment, provided clear and simple instructions, monitored behavior and need for intervention, provided reassurance as needed, assistance with ADL's, encouragement to perform personal hygiene, limit setting, positive reinforcement, Q 15 minute safety checks. Restraints/seclusion/emergency medication: None Justification of Continued Inpatient Treatment: Pt has end stage liver disease (MORFIN) with significant ascites, she is confused, she is in moderate to severe pain, she needs assist for most ADLs she is s/p OD in a suicide attempt. Pt needs medical and mental health stabilization, she needs pain management and may need placement in a higher level of care due to medical issues.
--- NOTE | 2020-06-10 16:11 | NUR ---
WEIGHT GAIN/END STAGE LIVER DISEASE/ITCHING Patient c/o itching today. Dr Real notified and received order for Atarax. Sirena informed that patient has gained 11.2 lbs in last 5 days. Ammonia level ordered, and Paracentesis is ordered for Friday morning. Patient to be NPO after midnight Monday 06/11
[2020-06-10] MEDS: hydrOXYzine 25 MG tablet PO PRN (16:23)
[2020-06-10 20:00] VITALS: BP 101/68
[2020-06-10] MEDS: QUEtiapine 25mg tablet PO SCH (20:12)
--- NOTE | 2020-06-11 00:22 | NUR ---
Nursing Progress Note: Legal hold: 5250 Expires 06/16 @ 0915 Client on involuntary status for DTS Report received from KOLE Bain Why are they here: Pt admitted to [place] for [facility] health on 5149 at 0915 for DTS. Pt attempted suicide by overdosing on 60 Tramadol tablets. Pt has history of chronic pain, fibromyalgia, depression, PE, liver failure. Pt presents confused upon arrival. Pt unsteady on her feet. Using wheelchair to transport pt. and bedside commode. Assessment What has happened this shift: The patient was sleeping at shift change. She has a sitter at bedside for transfers and position changes. Her room was entered a little later to find her awake. The patient states that she's "doing ok" then c/o back pain and other associated ailments causing discomfort. Her abdomen is quite large, fluid filled, and causing her discomfort. She denies feeling suicidal, "I just want to go home." The patient is fatigued and has trouble staying awake for long periods of time. She continues to be compliant with her medications. S/I, H/I: Denies A/VH: Denies Sleep: See sleep assessment ADL's: Needs maximum assistance. Group attendance: No Were meds taken: Yes Any med S/E: None reported or observed. Mental Status Exam Appearance: Fatigued, disheveled elderly woman wearing night clothes with covers up to her neck. Eye contact: Fair Behavior: cooperative, sleepy, fatigued, hopeless Speech: Soft, minimal. Mood: Depressed Affect: flat Thought process: Linear Thought Content: Circumstantial, wanting to go home Cognition: Alert when awake, easily aroused when sleeping Insight: poor Judgment: fair Interventions PRN's used: Ultram, Tylenol Therapeutic interventions:1:1 assessment, maintained a safe and therapeutic environment, provided clear and simple instructions, monitored behavior and need for intervention, provided reassurance as needed, assistance with ADL's, encouragement to perform personal hygiene, limit setting, positive reinforcement, Q 15 minute safety checks. Restraints/seclusion/emergency medication: None Justification of Continued Inpatient Treatment: Pt has end stage liver disease (MORFIN) with significant ascites, she is confused, she is in moderate to severe pain, she needs assist for most ADLs she is s/p OD in a suicide attempt. Pt needs medical and mental health stabilization, she needs pain management and may need placement in a higher level of care due to medical issues.
[2020-06-11] MEDS: LORazepam 1 MG tablet PO PRN ×2 (02:22→22:19)
[2020-06-11] MEDS: acetaminophen 325mg tablet PO PRN ×3 (02:22→17:32)
[2020-06-11] MEDS: traMADol 50MG tablet PO PRN ×4 (02:23→17:32)
[2020-06-11] MEDS: nystatin 15 GM powder TP SCH ×3 (08:00→20:03)
[2020-06-11 08:04] VITALS: BP 104/62
[2020-06-11] MEDS: aripiprazole 5mg tablet PO SCH (08:10)
[2020-06-11] MEDS: lactulose 20gm/30ml cup PO SCH ×3 (08:12→20:00)
[2020-06-11] MEDS: lactose-reduced food (Ensure Enlive) - 237ml bottle PO SCH ×3 (08:12→17:36)
[2020-06-11] MEDS: duloxetine 30mg CAPSULE.DR PO SCH (08:12)
[2020-06-11] MEDS: pantoprazole 40mg Tablet.DR PO SCH (08:12)
[2020-06-11] MEDS: rifaximin 550mg tablet PO SCH ×2 (08:12→20:00)
--- NOTE | 2020-06-11 09:12 | NUR ---
F/u (06/11): Pt PO improving 75-100% ONS and 75% avg heart healthy meals meeting needs. Frequent stools receiving lactulose TID. +9kg wt via bed scale likely error w/ no significant fluid balance changes. No nutrition concerns at this time. Will continue to monitor. Rec: 1. continue heart healthy diet 2. ensure enlive TIDWM 3. bowel care as needed; on lactulose 4. weekly wts Addendum: 06/11/20 at [address] Amended: Links added.
--- NOTE | 2020-06-11 12:55 | NUR ---
Nursing Progress Note: Legal hold: 5250 Expires 06/16 @ 0915 Client on involuntary status for DTS Report received from KOLE Bain Why are they here: Pt admitted to [place] for Behavioral health on 5150 at 0915 for DTS. Pt attempted suicide by overdosing on 60 Tramadol tablets. Pt has history of chronic pain, fibromyalgia, depression, PE, liver failure. Pt presents confused upon arrival. Pt unsteady on her feet. Using wheelchair to transport pt. and bedside commode. Assessment What has happened this shift: Pt slept most of the shift. Sitter at bedside assisting with turning frequently and transfers to [facility] Pt requested a neck brace to help with neck pain. Informed Jarvis Bain RN. Pt medicated x1 with Tramadol and Tylenol for c/o "6" neck pain. Abdomen greatly distended. Pt scheduled for a Paracentesis in am (06/12). NPO after midnight tonight. She denies feeling suicidal, "I just want to go home." Compliant with meds. S/I, H/I: Denies A/VH: Denies Sleep: See sleep assessment ADL's: Needs maximum assistance of 2. Group attendance: No Were meds taken: Yes Any med S/E: None reported or observed. Mental Status Exam Appearance: Fatigued, disheveled elderly woman wearing night clothes with covers up to her neck. Eye contact: Fair Behavior: cooperative, sleepy, fatigued, hopeless Speech: Soft, minimal. Mood: Depressed Affect: flat Thought process: Linear Thought Content: Circumstantial, wanting to go home Cognition: Alert when awake, easily aroused when sleeping Insight: poor Judgment: fair Interventions PRN's used: Ultram, Tylenol Therapeutic interventions:1:1 assessment, maintained a safe and therapeutic environment, provided clear and simple instructions, monitored behavior and need for intervention, provided reassurance as needed, assistance with ADL's, encouragement to perform personal hygiene, limit setting, positive reinforcement, Q 15 minute safety checks. Restraints/seclusion/emergency medication: None Justification of Continued Inpatient Treatment: Pt has end stage liver disease (MORFIN) with significant ascites, she is confused, she is in moderate to severe pain, she needs assist for most ADLs she is s/p OD in a suicide attempt. Pt needs medical and mental health stabilization, she needs pain management and may need placement in a higher level of care due to medical issues.
--- NOTE | 2020-06-11 16:15 | NUR ---
TC placed to pts daughter (Trudy) at [phone] to discuss plan for tomorrow's discharge. Pt, and myself present and placed call then spoke on speaker phone to pts daughter. Items Reviewed/Follow up: 1. Trudy would like to know who schedules pts Paracentesis approximately every 10 days? 2. Per Dr. Juares- "Elma will transmit information for MD Appt in the next few days. 3. Trudy is requesting current list of medications - Per Trudy she will waste picker pts medications that were removed from pts home and sent to her dad's home. Trudy will leave when Teleconference is done to retrieve the medications from her dad's home, then will call before [address] Juares can inform Trudy which prescriptions 1) What medications will be prescribed for home? 2) Does the patient have 30 days of each prescription? and 3) Are there any medications that need to be called into the Pharmacy for waste picker? 4. Discussed the need for Palliative Care in the future. 5. What is the current status of the "Declaration." Dr. Juares will ask Elma to update Trudy. Follow up conversation will occur with Dr. Juares and Trudy tomorrow after pt undergoes Paracentesis.
[2020-06-11 19:36] VITALS: BP 101/62
[2020-06-11] MEDS: QUEtiapine 25mg tablet PO SCH (20:01)
[2020-06-11] MEDS ORDERED: HYDROcodone/acetaminophen 5mg/325mg tablet PO ONE (21:55)
[2020-06-11] MEDS ORDERED: baclofen 10mg tablet PO PRN (22:10)
--- NOTE | 2020-06-12 00:56 | NUR ---
Nursing Progress Note: Legal hold: 5250 Expires 06/16 @ 0915 Client on involuntary status for DTS Report received from KOLE Bain Why are they here: Pt admitted to [place] for Behavioral health on 5149 at 0915 for DTS. Pt attempted suicide by overdosing on 60 Tramadol tablets. Pt has history of chronic pain, fibromyalgia, depression, PE, liver failure. Pt presents confused upon arrival. Pt unsteady on her feet. Using wheelchair to transport pt. and bedside commode. Assessment What has happened this shift: The patient was seen at bedside for 1:1. She appears fatigued and uncomfortable. She does not feel like talking, due to discomfort, but states, "I just want to get better...I just want to get better." She does not believe she is discharging tomorrow, but on . "I'm not ready." At ~1900, she c/o neck pain and requested an ice pack, but got no relief from it. She had been medicated for pain before this shift, so there was nothing to give her yet. Later, she was in bad pain, but Tramadol 50mg, And Tylenol 650mg "does nothing for me." Sirena CHELI was called, and an order was received for Norco5/325, Baclofen 20mg, along with Ativan was given. She had gotten up to BSC 4 times with no urine produced, and was fidgety and uncomfortable, feeling like there was something beneath her, when there was nothing. A little later she was finally feeling sleepy. Not long after, she was sleeping. She denies feeling suicidal. "I just want to go home." S/I, H/I: Denies A/VH: Denies Sleep: See sleep assessment ADL's: Needs maximum assistance. Group attendance: No Were meds taken: Yes Any med S/E: None reported or observed. Mental Status Exam Appearance: Fatigued, disheveled elderly woman wearing night clothes with covers up to her neck. Eye contact: Fair Behavior: cooperative, sleepy, fatigued, hopeless, restless Speech: Soft, minimal. Mood: Depressed Affect: flat Thought process: Linear Thought Content: Circumstantial, wanting to go home Cognition: Alert when awake, easily aroused when sleeping Insight: poor Judgment: fair Interventions PRN's used: Ultram 50, Tylenol 650, [place] 5/325, Baclofen 20, and Ativan 1mg Therapeutic interventions:1:1 assessment, maintained a safe and therapeutic environment, provided clear and simple instructions, monitored behavior and need for intervention, provided reassurance as needed, assistance with ADL's, encouragement to perform personal hygiene, limit setting, positive reinforcement, Q 15 minute safety checks. Restraints/seclusion/emergency medication: None Justification of Continued Inpatient Treatment: Pt has end stage liver disease (MORFIN) with significant ascites, she is confused, she is in moderate to severe pain, she needs assist for most ADLs she is s/p OD in a suicide attempt. Pt needs medical and mental health stabilization, she needs pain management and may need placement in a higher level of care due to medical issues.
[2020-06-12 08:00] VITALS: BP 111/68
[2020-06-12] MEDS: lactulose 20gm/30ml cup PO SCH ×3 (08:00→20:03)
[2020-06-12] MEDS: lactose-reduced food (Ensure Enlive) - 237ml bottle PO SCH ×3 (08:00→17:48)
[2020-06-12] MEDS: duloxetine 30mg CAPSULE.DR PO SCH (08:28)
[2020-06-12] MEDS: rifaximin 550mg tablet PO SCH ×2 (08:28→20:04)
[2020-06-12] MEDS: nystatin 15 GM powder TP SCH ×3 (08:28→20:04)
[2020-06-12] MEDS: pantoprazole 40mg Tablet.DR PO SCH (08:28)
[2020-06-12] MEDS: aripiprazole 5mg tablet PO SCH (08:28)
--- NOTE | 2020-06-12 14:07 | NUR ---
Change of condition noted today as compared to yesterday's care with the patient. Pt has been lethargic and difficult to arouse at times since arrival at 0600. Pt has been incontinent x2 today. JUAN JOSE Watson was able to lift her from the bed to the bedside commode. Pt was unable to bear weight. She was unable to walk 2 steps to the BSC so she was lifted to the BSC. Voided 150cc. NPO for Paracentesis. Pt mumbles and does not appear to oriented when she briefly awakens. Notified Marlena Bain RN. Vital signs were 94/48, 92HR, 99% on room air. Paracentesis cancelled at 1230. Angio called and rescheduled until tomorrow. Pt ate approximately 1/2 of her lunch without difficulty. Will continue to monitor patient.
[2020-06-12] MEDS ORDERED: LACT-237 PO (14:17)
[2020-06-12] MEDS ORDERED: DULO60CA65 PO (14:17)
[2020-06-12] MEDS ORDERED: NYSPWD TP (14:17)
[2020-06-12] MEDS ORDERED: ATI1T PO (14:17)
[2020-06-12] MEDS ORDERED: QUET25TA PO (14:17)
[2020-06-12] MEDS ORDERED: RIFA550T PO (14:17)
[2020-06-12] MEDS ORDERED: PANT-47 PO (14:17)
[2020-06-12] MEDS ORDERED: LACT10SO PO (14:17)
[2020-06-12] MEDS ORDERED: TRAM50TA2 PO (14:17)
--- NOTE | 2020-06-12 15:05 | NUR ---
Nursing Progress Note: Legal hold: 5250 Expires 06/16 @ 0915 Client on involuntary status for DTS Report received from KOLE Bain Why are they here: Pt admitted to [place] for [facility] health on 5149 at 0915 for DTS. Pt attempted suicide by overdosing on 60 Tramadol tablets. Pt has history of chronic pain, fibromyalgia, depression, PE, liver failure. Pt presents confused upon arrival. Pt unsteady on her feet. Using wheelchair to transport pt. and bedside commode. Assessment What has happened this shift: Pt has been extremely lethargic all day. Pt received [place] 5, Baclofen and Ativan all within 30 minutes of each other last night at 2219, and she will take a while to clear. Pt was NPO this morning to have a paracentesis done, but at approximately 1200, Angio r/s to tomorrow.Mumbles words but cannot pronounce words and answer questions about location & time. Pt has been incontinent x2 today (she used BSC all day yesterday), and when she did awaken some about 1100, she requested to use BSC. Pt was sat at bedside, then JUAN JOSE Watson tried to stand pt at bedside and pt was unable to bear weight and was lifted to the BSC. It will take a minimum of 2 staff members to assist her to BSC. Pt has not been able to verbalize that she has needs pain medication. Discharged will be delayed until tomorrow d/t paracentesis will be done tomorrow. Wt is up 15 lbs since admission. S/I, H/I: Denies A/VH: Denies Sleep: See sleep assessment ADL's: Needs maximum assistance. Group attendance: No Were meds taken: Yes Any med S/E: None reported or observed. Mental Status Exam Appearance: Fatigued, disheveled elderly woman wearing night clothes with covers up to her neck. Eye contact: Fair Behavior: cooperative, sleepy, fatigued, hopeless, restless Speech: Soft, minimal. Mood: Depressed Affect: flat Thought process: Linear Thought Content: Circumstantial, wanting to go home Cognition: Alert when awake, easily aroused when sleeping Insight: poor Judgment: fair Interventions PRN's used: Ultram 50, Tylenol 650, [place] 5/325, Baclofen 20, and Ativan 1mg Therapeutic interventions:1:1 assessment, maintained a safe and therapeutic environment, provided clear and simple instructions, monitored behavior and need for intervention, provided reassurance as needed, assistance with ADL's, encouragement to perform personal hygiene, limit setting, positive reinforcement, Q 15 minute safety checks. Restraints/seclusion/emergency medication: None Justification of Continued Inpatient Treatment: Pt has end stage liver disease (MORFIN) with significant ascites, she is confused, she is in moderate to severe pain, she needs assist for most ADLs she is s/p OD in a suicide attempt. Pt needs medical and mental health stabilization, she needs pain management and may need placement in a higher level of care due to medical issues.
[2020-06-12] MEDS: traMADol 50MG tablet PO PRN (17:21)
[2020-06-12] MEDS: QUEtiapine 25mg tablet PO SCH (20:04)
[2020-06-12] MEDS: LORazepam 1 MG tablet PO PRN (20:05)
[2020-06-12] MEDS: acetaminophen 325mg tablet PO PRN (20:05)
[2020-06-12 20:07] VITALS: BP 92/61
--- NOTE | 2020-06-12 23:03 | NUR ---
Nursing Progress Note: Legal hold: 5250 Expires 06/16 @ 0915 Client on involuntary status for DTS Report received from KOLE Bain Why are they here: Pt admitted to [place] for Behavioral health on 5149 at 0915 for DTS. Pt attempted suicide by overdosing on 60 Tramadol tablets. Pt has history of chronic pain, fibromyalgia, depression, PE, liver failure. Pt presents confused upon arrival. Pt unsteady on her feet. Using wheelchair to transport pt. and bedside commode. Assessment What has happened this shift: The patient was seen at bedside for 1:1. She's unable to manage conversation tonight...only groans and grimaces. Her pain is unmanageable and constant. She has been medicated with everything available on JAN. Nothing seems to help her discomfort. Call was made to on-call Dr. Mcclelland, and no orders received. She needs to get up to BSC repeatedly, because she feels like urinating, but doesn't. Possibly a manifestation from Ascites fluid in her abdomen. She is non-weight bearing at this point and requires at least 2 persons for transfer. She remains on LOS for fall protection. The patient is scheduled for Paracentesis in AM, then hopefully home later. Continuing to monitor. S/I, H/I: Denies A/VH: Denies Sleep: See sleep assessment ADL's: Needs maximum assistance. Group attendance: No Were meds taken: Yes Any med S/E: None reported or observed. Mental Status Exam Appearance: Fatigued, disheveled elderly woman wearing night clothes with covers up to her neck. Eye contact: Fair Behavior: cooperative, sleepy, fatigued, hopeless, restless, extreme pain. Speech: Soft, minimal. Mood: Depressed Affect: flat Thought process: Linear Thought Content: Circumstantial, wanting to go home Cognition: Alert when awake, easily aroused when sleeping Insight: poor Judgment: fair Interventions PRN's used: Ultram 50, Tylenol 650, Seroquel Therapeutic interventions:1:1 assessment, maintained a safe and therapeutic environment, provided clear and simple instructions, monitored behavior and need for intervention, provided reassurance as needed, assistance with ADL's, encouragement to perform personal hygiene, limit setting, positive reinforcement, Q 15 minute safety checks. Restraints/seclusion/emergency medication: None Justification of Continued Inpatient Treatment: Pt has end stage liver disease (MORFIN) with significant ascites, she is confused, she is in moderate to severe pain, she needs assist for most ADLs she is s/p OD in a suicide attempt. Pt needs medical and mental health stabilization, she needs pain management and may need placement in a higher level of care due to medical issues.
[2020-06-13] MEDS: traMADol 50MG tablet PO PRN (07:20)
[2020-06-13] MEDS: acetaminophen 325mg tablet PO PRN (07:21)
[2020-06-13] MEDS: aripiprazole 5mg tablet PO SCH ×2 (07:21→08:00)
[2020-06-13] MEDS: rifaximin 550mg tablet PO SCH ×2 (07:22→08:00)
[2020-06-13] MEDS: lactulose 20gm/30ml cup PO SCH ×2 (07:22→08:00)
[2020-06-13] MEDS: duloxetine 30mg CAPSULE.DR PO SCH ×2 (07:22→08:00)
[2020-06-13] MEDS: pantoprazole 40mg Tablet.DR PO SCH ×2 (07:22→08:00)
[2020-06-13] MEDS: hydrOXYzine 25 MG tablet PO PRN (07:22)
[2020-06-13 07:48] VITALS: BP 99/48
[2020-06-13] MEDS: lactose-reduced food (Ensure Enlive) - 237ml bottle PO SCH (08:00)
[2020-06-13] MEDS: nystatin 15 GM powder TP SCH (08:00)
[2020-06-13 11:00] VITALS: BP 102/65
[2020-06-13 11:20] VITALS: BP 81/57
--- NOTE | 2020-06-13 11:46 | NUR ---
PATIENT OBTUNDED The patient having difficulty waking and answering questions, decreased mentation. David Pack informed, had paracentesis took off 3L. Patient restless and anxious. Dr Rutledge called and discussed condition, stat labs ordered. Most likely will be transferred to medical floor.
[2020-06-13 12:36] LABS: BASOPHILS % (AUTO) 0.7 % (0-1); EOSINOPHILS # (AUTO) 0.2 X10'3 (0-0.9); EOSINOPHILS % (AUTO) 2.3 % (0-6); HEMATOCRIT 34.4 % (35.0-45.0); HEMOGLOBIN 11.6 g/dl (12.0-16.0); LYMPHOCYTES # (AUTO) 0.7 X10'3 (1.1-4.8); LYMPHOCYTES % (AUTO) 10.5 % (21-51); MEAN CORPUSCULAR HEMOGLOBIN 31.2 PG (27.0-31.0); MEAN CORPUSCULAR HGB CONC 33.7 g/dL (33.0-36.5); MEAN CORPUSCULAR VOLUME 92.5 FL (78-98); MEAN PLATELET VOLUME 7.5 FL (7.4-10.4); MONOCYTES # (AUTO) 0.7 X10'3 (0-0.9); MONOCYTES % (AUTO) 10.2 % (2-12); NEUTROPHILS # (AUTO) 5.3 X10'3 (1.8-7.7); NEUTROPHILS % (AUTO) 76.3 % (42-75); PLATELET COUNT 184 X10'3 (140-440); RED BLOOD COUNT 3.71 X10'6 (4.20-5.60); RED CELL DISTRIBUTION WIDTH 15.3 % (11.5-14.5)
[2020-06-13 12:47] LABS: ALANINE AMINOTRANSFERASE 16 U/L (12-78); ALBUMIN 1.8 G/DL (3.4-5.0); ALBUMIN/GLOBULIN RATIO 0.4 (1.1-1.5); ALKALINE PHOSPHATASE 110 IU/L (46-116); ANION GAP 1 (8-16); ASPARTATE AMINO TRANSFERASE 44 U/L (10-37); BILIRUBIN,TOTAL 1.3 MG/DL (0.1-1.0); BLOOD UREA NITROGEN 26 MG/DL (7-18); BUN/CREATININE RATIO 22.2 (6.6-38.0); CALCIUM 8.9 MG/DL (8.5-10.1); CHLORIDE 101 MMOL/L (99-107); CREATININE 1.17 MG/DL (0.40-0.90); GLUCOSE 89 MG/DL (70-104); LACTATE DEHYDROGENASE 202 U/L (81-234); MAGNESIUM 1.9 MG/DL (1.5-2.4); PHOSPHORUS 3.6 MG/DL (2.3-4.5); POTASSIUM 4.6 MMOL/L (3.5-5.1); SODIUM 133 MMOL/L (135-145); TOTAL CARBON DIOXIDE 31.2 MMOL/L (24-32); TOTAL PROTEIN 6.4 G/DL (6.4-8.2); eGFR 45 ML/MIN
--- NOTE | 2020-06-13 14:37 | NUR ---
DCP Presenting Issues: Pt's condition have worsened, pt continues to require 2 persons assist to safely transfer, had been on LOS. Pt does not have access to 24/7 care in the home. New dcp is needed. Interventions: SS had t/c with pt's dtr-Trudy, per t/c, Trudy is agreeable to be the healthcare decision maker for pt. Trudy also agreed to have pt be referred to a SNF. Trudy would like to speak w/hospitalist re pt's current medical conditions/needs and prognosis. Plan: Pt to transfer to medical floor. SS will remain as pt's assigned SW for continuity of care Elma Dolan LCSW Addendum: 06/13/20 at 1441 by Elma Dolan Amended: Links added.
--- NOTE | 2020-06-13 15:25 | NUR ---
DISCHARGE NOTE The patient was discharged from [facility] at 1525 and admitted to Ortho/Neuro. Report was called to [facility] and hard copy of admit order from Dr. Hong was transported to Ortho with patient. The patient is no longer having suicidal thoughts. She was transported via wheelchair with all belongings and discharge packet by RICCARDO Linda and RICCARDO Watson. RICCARDO Linda will remain with patient today as sitter.
--- NOTE | 2020-06-13 16:07 | NUR ---
Discharge Presenting Issues: Pt d/c from [facility] & transferred to Orth/Neuro for management of medical conditions. Interventions: SS had t/c with daughter Trudy and informed Trudy of change in pt's placement at this time and provided contact # for Orth/Neuro unit. Plan: SS will continue to follow for continuity of care purposes. Elma Dolan TALENT ACQUISITION ADMINISTRATOR Addendum: 06/13/20 at 1610 by Elma Dolan Amended: Links added.
== END 2020-06-13 15:26 | disposition short-term general hospital (02) | DRG 885 ==
LOC: ADULT MH 05-30 09:11
PROVIDERS: ADMIT Psychiatry & Neurology Psychiatry; ATTEND Psychiatry & Neurology Psychiatry
PROC: 0W9G3ZZ Drainage of Peritoneal Cavity, Percutaneous Approach (ICD-10-PCS; 2020-06-02)
PROC: 0W9G3ZZ Drainage of Peritoneal Cavity, Percutaneous Approach (ICD-10-PCS; principal; 2020-06-13)
DX: F33.9 Major depressive disorder, recurrent, unspecified (principal); G93.41 Metabolic encephalopathy; R45.851 Suicidal ideations; N39.0 Urinary tract infection, site not specified; T40.602A Poisoning by unspecified narcotics, intentional self-harm, initial encounter; E11.9 Type 2 diabetes mellitus without complications; E66.01 Morbid (severe) obesity due to excess calories; E78.5 Hyperlipidemia, unspecified; F41.9 Anxiety disorder, unspecified; G89.29 Other chronic pain; I10 Essential (primary) hypertension; K21.9 Gastro-esophageal reflux disease without esophagitis; K74.60 Unspecified cirrhosis of liver; K75.81 Nonalcoholic steatohepatitis (NASH); M79.7 Fibromyalgia; K72.90 Hepatic failure, unspecified without coma; T40.4X1A Poisoning by other synthetic narcotics, accidental (unintentional), initial encounter; Z96.659 Presence of unspecified artificial knee joint; M54.5 Low back pain; Z63.8 Other specified problems related to primary support group; Z79.899 Other long term (current) drug therapy; Z86.711 Personal history of pulmonary embolism; Z90.710 Acquired absence of both cervix and uterus
CPT/HCPCS: 36415; 49083; 76705; 80053; 80061; 81001; 82140; 83036; 83615; 83735; 84100; 84145; 84439; 84443; 85025; 85610; 85730; 87081; 99285; Q0177